=== PATIENT | male | born 1950 | race Hispanic/Latino ===

== ENCOUNTER 2019-01-14 18:27 | Inpatient (IN) | payer MEDICARE, OTHER ==
[~2019-01-14 18:27] MED LIST: Gadobenate Dimeglumine 529 MG/1 ML (20ML VIAL) ONE
[2019-01-14] MEDS ORDERED: Acetaminophen 325 MG TAB ONE (18:50)
[2019-01-14] MEDS ORDERED: Ibuprofen 800 MG TAB ONE (18:50)
[2019-01-14 20:30] LABS: #Basophils 0.1 thou/uL (0.0-0.2); #Eosinphils 0.1 thou/uL (0.0-0.7); #Lymphocytes 1.7 thou/uL (1.20-3.40); #Monocytes 1.2 thou/uL (0.11-0.59); #Neutrophils 8.6 thou/uL (1.40-6.50); %Eosinophils 0.7 % (0.0-10.0); %Lymphocytes 14.3 % (21.0-51.0); %Monocytes 10.2 % (0.0-10.0); %Neutrophils 73.8 % (42.0-75.0); Mean Corpuscular HGB CONC 33.3 g/dL (32.0-36.0); Mean Corpuscular Hemoglobin 26.5 pg (27.0-31.0); Mean Corpuscular Volume 79.6 fL (78.0-98.0); Mean Platelet Volume 6.5 fL (7.4-10.4); Platelet Count 311 thou/uL (130-400); Red Blood Cell (RBC) Count 4.52 mill/uL (4.70-6.10); White Blood Cell (WBC) Count 11.6 thou/uL (4.8-10.8)
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
[2019-01-14 20:48] LABS: ALT (SGPT) 21 U/L (8-55); AST (SGOT) 49 U/L (5-34); Albumin 3.8 g/dL (3.4-4.8); Alkaline Phosphatase 1121 U/L (40-110); Anion Gap 13 mmol/L (10-20); BUN (Urea Nitrogen) 24 mg/dL (8.4-25.7); Bilirubin, Total 0.4 mg/dL (0.2-1.2); Calc. Creatinine Clearance 0 mL/min (70-130); Carbon Dioxide 23 mmol/L (23-31); Chloride 99 mmol/L (98-107); Estimated GFR-MDRD 70; Globulin 3.5 g/dL (2.4-3.5); Glucose 114 mg/dL (80-115); Potassium 3.3 mmol/L (3.5-5.1); Protein, Total 7.3 g/dL (5.8-8.1); Sodium 132 mmol/L (136-145)
[2019-01-14 21:15] LABS: Bacteria/HPF None Seen HPF (None Seen); Bilirubin Negative (Negative); Blood, Urine 1+ (Negative); Clarity Clear (Clear); Glucose, Urine (Dipstick) Normal (Negative); Leukocyte Negative Leu/uL (Negative); Nitrite Negative (Negative); Protein, Urine (Dipstick) 30 mg/dL (Neg-Trace); Squamous Epithelial None Seen HPF (0-3); Urobilinogen 3 mg/dL (Less than 2); WBC/HPF 0-3 HPF (0-3)
[2019-01-15] MEDS ORDERED: Piperacillin/Tazobactam 4.5 GM VIAL ONE (01:46)
[2019-01-15] MEDS ORDERED: Sodium Chloride 0.9% 100 ML ONE (01:46)
[2019-01-15] MEDS ORDERED: HYDROcodone/Acetaminophen 5/325 mg Tablet PO PRN ×2 (03:02→16:29)
[2019-01-15] MEDS ORDERED: Ondansetron PF 4 MG/2 ML Vial IVP PRN ×2 (03:02→13:30)
[2019-01-15] MEDS ORDERED: Ondansetron ODT 4 MG TAB SL PRN (03:02)
[2019-01-15] MEDS ORDERED: Acetaminophen 325 MG TAB PO PRN (03:02)
[2019-01-15] MEDS: HYDROcodone/Acetaminophen 5/325 mg Tablet PO PRN ×2 (03:41→08:52)
--- NOTE | 2019-01-15 08:30 | MRI ---
PRELIMINARY REPORT/[facility]/EMERGENCY AFTER HOURS PROCEDURE: PROCEDURE INFORMATION: Exam: MR Lumbar Spine Without and With Contrast. Exam date and time: 01/14/2019 11:38 PM Clinical history: 68 years old, male; Other: Epidural abcess; Patient HX: M68 presents to ED with C/O back pain that radiates into bilateral legs with neck pain radiating into shoulders since November wit h acute worsening last night. PT reports that he has followed up with his pcp who did xrays that show ed arthritis. PT denies injury to back. PT reports pcp prescribed PT tramadol today and reports he wilkins s taken it once with no relief. PT with fever in triage. PT unsure what is causing this and reports n o recent illness. PT reports intermittent cough and lower abdominal pain x1 month. PT denies SOB, sor e throat, nvd and UTI symptoms TECHNIQUE: Imaging protocol: Multiplanar magnetic resonance images of the lumbar spine without and with intraven ous contrast. Contrast material: MULTIHANCE; Contrast volume: 20 ml; Contrast route: RT FOREARM; COMPARISON: No relevant prior studies available. FINDINGS: Vertebral body height and alignment is preserved. Disc desiccation. There is extensive abnormal marro w signal and enhancement. Conus medullaris terminates at L1. No epidural fluid collection. There is lumbosacral epidural lipomatosis. L1-L2: Mild disc bulge with superimposed shallow right paracentral protrusion and annular tear. No si gnificant central or foraminal stenosis. L2-L3: Mild disc bulge with posterior annular tear. No significant central or foraminal stenosis. L3-L4: Mild disc bulge and mild bilateral facet joint arthropathy. No significant central or foramina l stenosis. L4-L5: Disc bulge with superimposed shallow right central protrusion and annular tear. There is mild facet joint arthropathy and prominent epidural fat. Moderate central canal stenosis and mild bilatera l foraminal stenosis. L5-S1: Disc bulge eccentric toward the left side. There is prominent epidural fat which effaces CSF f rom the thecal sac. Mild to moderate bilateral foraminal stenosis. IMPRESSION: 1. Abnormal marrow signal concerning for osseous metastatic disease. 2. Lumbosacral epidural lipomatosis with superimposed degenerative findings as above. Thank you for allowing us to participate in the care of your patient. Dictated and Authenticated by: Bang Gipson MD 01/15/2019 1:30 AM Central Time ([place] & [place]) FINAL REPORT MRI LUMBAR SPINE WITH AND WITHOUT GADOLINIUM CONTRAST PERFORMED ON AN EMERGENCY BASIS: Date: 01/14/19 Time: 2342 hours HISTORY: Low back pain. Evaluate for cauda equina syndrome. FINDINGS: Findings agree with the preliminary report by [facility]. Multilevel degenerative changes as detailed in the preliminary report. Near diffuse abnormal signal t hroughout the bone marrow with contrast enhancement. Likely related to widespread metastatic disease. Likely a hemangioma within the S2 vertebral segment. POS: [facility]
--- NOTE | 2019-01-15 08:34 | MRI ---
PRELIMINARY REPORT/[facility]/EMERGENCY AFTER HOURS PROCEDURE: PROCEDURE INFORMATION: Exam: MR Thoracic Spine Without and With Contrast Exam date and time: 01/14/2019 11:19 PM Clinical history: 68 years old, male; Other: Epidural abcess; Patient HX: M68 presents to ED with C/O back pain that radiates into bilateral legs with neck pain radiating into shoulders since November wit h acute worsening last night. PT reports that he has followed up with his pcp who did xrays that show ed arthritis. PT denies injury to back. PT reports pcp prescribed PT tramadol today and reports he wilkins s taken it once with no relief. PT with fever in triage. PT unsure what is causing this and reports n o recent illness. PT reports intermittent cough and lower abdominal pain x1 month. PT denies SOB, sor e throat, nvd and UTI symptoms TECHNIQUE: Imaging protocol: Multiplanar magnetic resonance images of the thoracic spine without and with intrav enous contrast. Contrast material: MULTIHANCE; Contrast volume: 20 ml; Contrast route: RIGHT FOREARM; COMPARISON: No relevant prior studies available. FINDINGS: No acute compression fracture or malalignment. There is extensive pathologic marrow signal and enhanc ement. No abnormal cord signal. No epidural fluid collection. No significant central canal stenosis throughout. IMPRESSION: 1. Extensive pathologic marrow signal and enhancement concerning for osseous metastatic disease. 2. No abnormal cord signal. 3. No significant central canal compromise. Thank you for allowing us to participate in the care of your patient. Dictated and Authenticated by: Bang Gipson MD 01/15/2019 1:25 AM Central Time ([place] & [place]) FINAL REPORT MRI THORACIC SPINE WITH AND WITHOUT CONTRAST: Date: 01/14/19 Exam performed in the emergency department. Question epidural abscess. FINDINGS: Abnormal marrow signal is seen throughout the thoracic vertebra. Thoracic vertebral bodies maintain h eight and alignment. No evidence of disc protrusion or central canal stenosis. There is high T2 signal and enhancement seen involving several posterior ribs in the mid and lower th oracic spine. Posterior element involvement is seen at multiple levels. I am in agreement with the preliminary report issued by [facility]. POS: [facility]
--- NOTE | 2019-01-15 08:39 | MRI ---
PRELIMINARY REPORT/[facility]/EMERGENCY AFTER HOURS PROCEDURE: PROCEDURE INFORMATION: Exam: MR Cervical Spine Without and With Contrast Exam date and time: 01/14/2019 10:54 PM Clinical history: 68 years old, male; Other: Epidrual abcess; Patient HX: M68 presents to ED with C/O back pain that radiates into bilateral legs with neck pain radiating into shoulders since November wit h acute worsening last night. PT reports that he has followed up with his pcp who did xrays that show ed arthritis. PT denies injury to back. PT reports pcp prescribed PT tramadol today and reports he wilkins s taken it once with no relief. PT with fever in triage. PT unsure what is causing this and reports n o recent illness. PT reports intermittent cough and lower abdominal pain x1 month. PT denies SOB, sor e throat, nvd and UTI symptoms TECHNIQUE: Imaging protocol: Multiplanar magnetic resonance images of the cervical spine without and with intrav enous contrast. Contrast material: MULTIANCE; Contrast volume: 20 ml; Contrast route: RIGHT FOREARM; COMPARISON: No relevant prior studies available. FINDINGS: Nonspecific straightening of the cervical lordosis. Trace retrolisthesis of C3 on C4. Mild loss of lozano perior endplate height involving C7. No associated edema. Abnormal marrow signal and enhancement invo lving the cervical and thoracic spine. No abnormal cord signal. No epidural fluid collection. C2-C3: No significant central or foraminal stenosis. C3-C4: Mild disc osteophyte complex with left greater than right uncinate spurring. No significant ce ntral canal stenosis. There is mild to moderate left foraminal stenosis. C4-C5: Mild disc osteophyte complex with left greater than right uncinate spurring. No significant ce ntral canal stenosis. There is mild to moderate left foraminal stenosis. C5-C6: Mild disc osteophyte complex with uncinate spurring more prominent on the right. No significan t central canal stenosis. Moderate bilateral foraminal stenosis. C6-C7: Mild disc osteophyte complex with bilateral uncinate spurring. No significant central canal st enosis. There is moderate bilateral foraminal stenosis. C7-T1: No significant stenosis. IMPRESSION: 1. Abnormal marrow signal involving the cervical and visualized upper thoracic spine concerning for o sseous metastatic disease. 2. No abnormal cord signal. 3. Degenerative findings as above without significant central canal stenosis or cord compression. Thank you for allowing us to participate in the care of your patient. Dictated and Authenticated by: Bang Gipson MD 01/15/2019 1:21 AM Central Time ([place] & [place]) FINAL REPORT MRI CERVICAL SPINE WITH AND WITHOUT CONTRAST: Date: 01/14/19 INDICATION: Back pain. Exam performed in the emergency department. FINDINGS: Mild degenerative disc changes seen throughout the cervical spine. Mild posterior disc bulge and spon dylosis without significant cord compression or central canal stenosis. On postcontrast imaging, there is mottled enhancement seen involving cervical and upper thoracic vert ebra, as described on the preliminary report. Consider further evaluation with total body bone scan. I am in agreement with the preliminary report issued by [facility]. POS: [facility]
[2019-01-15] MEDS ORDERED: Ondansetron ODT 4 MG TAB PO PRN (13:30)
[2019-01-15] MEDS ORDERED: hydrALAZINE 20 MG/ML VIAL SLOW IVP PRN (13:30)
[2019-01-15 14:15] VITALS: BMI 32.3
[2019-01-15] MEDS: Amlodipine 5 MG TAB PO SCH (14:36)
[2019-01-15] MEDS: traMADol HCl 50 MG TAB PO SCH ×2 (14:36→20:35)
--- NOTE | 2019-01-15 14:59 | HP ---
PRIMARY CARE PROVIDER: Dr. Toni Mai in [place], [place]. CHIEF COMPLAINT: Back pain. HISTORY OF PRESENT ILLNESS: This is a 68-year-old male, who presented to [facility] Emergency Department complaining of lower back pain radiating to bilateral lower extremities with associated right shoulder discomfort, which began approximately 2 months prior to this evaluation. The patient noted increasing pain in the right shoulder region over the last 24 hours and apparently underwent plain radiographic imaging of his back and shoulder by his primary care provider, who commented that he had arthritis. The patient denied any direct trauma or injury or documented fever, chills, or exposure history. The patient was prescribed tramadol, which he took without specific relief. The patient does admit to persistent pain in the right shoulder area with movement or lying on the shoulder and notes a 30 plus pound weight loss over the last eight weeks. The patient states this was unintentional with some decrease in overall appetite. The patient denied any change to bowel habits, recent travel history or exposure, or family members with similar symptoms. The patient denied any documented fever, but states he was noted febrile up to 102 degrees Fahrenheit at presentation in the emergency room. The patient states his only new medication was tramadol prescribed for his back pain. 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 In the emergency room, the patient underwent general evaluation including MRI imaging of his cervical, thoracic, and lumbar spine showing degenerative changes throughout the spinal column. The patient was also noted with changes consistent with metastatic process concerning for malignancy. The patient received IV vancomycin, Zosyn, Motrin, and Tylenol in the emergency room and was referred to the Hospitalist Service for further evaluation. PAST MEDICAL HISTORY: 1. Hypertension. 2. Chronic back pain. 3. Question of diabetes mellitus, previously treated while on oral medication, now discontinued. 4. Remote tobacco use, quitting in the . PAST SURGICAL HISTORY: Status post eye surgery. CURRENT MEDICATIONS: 1. Amlodipine 2.5 mg p.o. q.48 hours. 2. Carvedilol 6.25 mg p.o. b.i.d. 3. Hydrochlorothiazide 12.5 mg p.o. daily. 4. Latanoprost one drop to each eye at bedtime. 5. Meloxicam 15 mg p.o. daily. 6. Potassium chloride 10 mEq p.o. daily. 7. Tramadol 50 mg p.o. t.i.d. p.r.n. pain. 8. Calan SR 240 mg 2 tablets p.o. daily. ALLERGIES: NO KNOWN DRUG ALLERGIES. FAMILY HISTORY: Positive for dementia in his parents. SOCIAL HISTORY: The patient is , accompanied by his and daughter in the hospital. 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 Former tobacco use, quitting in the . Occasional alcohol use. No illicit drug use. Functional of all activities of daily living. REVIEW OF SYSTEMS: CONSTITUTIONAL: Negative for weight loss or gain, ability to conduct usual activities. SKIN: Negative for rash, itching. EYES: Negative for double vision, pain. ENT/MOUTH: Negative for nose bleeding, neck stiffness, pain, tenderness. CARDIOVASCULAR: Negative for palpitations, dyspnea on exertion, orthopnea. RESPIRATORY: Negative for shortness of breath, wheezing, cough, hemoptysis, fever or night sweats. GASTROINTESTINAL: Negative for poor appetite, abdominal pain, heartburn, nausea, vomiting, constipation, or diarrhea. GENITOURINARY: Negative for urgency, frequency, dysuria, nocturia. MUSCULOSKELETAL: Negative for pain, swelling. NEUROLOGIC/PSYCHIATRIC: Negative for anxiety, depression. ALLERGY/IMMUNOLOGIC: Negative for skin rash, bleeding tendency. Otherwise negative except as stated per HPI. PHYSICAL EXAMINATION: VITAL SIGNS: On admission, blood pressure 133/75, pulse 76, respiratory rate 18, temperature 99 degrees Fahrenheit, and O2 saturation 94% on room air. GENERAL APPEARANCE: This is a 68-year-old male, alert and oriented x3, pleasant, responsive, in no acute distress. HEENT: Pupils are equal, round, and reactive to light and accommodation. Extraocular muscles are intact. No scleral icterus. No conjunctival injection. Nares patent. OP is clear. Teeth in fair repair. NECK: Supple. No cervical adenopathy. No thyromegaly. No carotid bruits. No JVD appreciated. Cervical spine with full active and passive range of motion. No meningeal signs noted. CHEST: Lungs are clear to auscultation bilaterally. CARDIOVASCULAR: S1 and S2 without noted murmur, rub, or gallop. ABDOMEN: Obese, nontender, and nondistended. Bowel sounds are positive in all 4 quadrants. There is no hepatosplenomegaly. No abdominal bruits. No rebound or guarding appreciated. EXTREMITIES: Warm and dry with fair turgor. No clubbing, cyanosis, or asymmetric edema appreciated. Pulses palpable distally at the dorsalis pedis, posterior tibial, and popliteal arteries bilaterally. Capillary refill less than 2 seconds. NEUROLOGIC: Cranial nerves 2 through 12 are grossly intact. No focal or lateralizing signs appreciated. PERTINENT LABORATORY AND X-RAY FINDINGS: Sodium 132, potassium 3.3, chloride 99, CO2 of 23, BUN 24, creatinine 1.05, estimated GFR of 70, glucose 114, calcium 9.0, AST 49, ALT of 21, alkaline phosphatase 1121, albumin 3.8. CBC showed a white blood cell count of 11.6, hemoglobin 12, hematocrit 36, platelet count 311 with 74% neutrophils. ESR 60. Urinalysis positive for protein, 4 to 6 rbc's per high-power field. Blood cultures x2 dated 01/14/2019, showed no growth to date. Influenza A and B antigen dated 01/14/2019, negative. Portable chest x-ray dated 01/14/2019, showed no acute cardiopulmonary process. MRI of the cervical, thoracic, and lumbar spine showed diffuse osseous metastatic process of unknown etiology. Degenerative changes noted throughout the spinal column. ASSESSMENT AND PLAN: 1. Osseous metastatic process. The patient will be admitted to the medical floor. Exact etiology is unclear currently. We will continue to evaluate for potential primary. Check CT of the chest, abdomen, and pelvis in addition to assessment of tumor markers to include CA-125, CA-19-9, AFP, TSH, PSA, and fecal occult stool study. We will consult Medical Oncology Service for further recommendations and evaluation. 2. Weight loss. Suspect secondary to #1. See #1 above for evaluation. The patient may need additional evaluation to include a tissue biopsy. 3. Hyponatremia. Suspect iatrogenic secondary to hydrochlorothiazide. We will continue supportive management and serial monitoring. 4. Hypokalemia. Continue potassium chloride supplementation and repeat potassium level in the a.m. 5. Hypertension. Resume home blood pressure regimen and monitor clinical response. 6. Prophylaxis. SCDs while in bed. Pepcid 20 mg p.o. b.i.d. 7. Code status is full. Surrogate medical decision maker is the patient's spouse. Job ID: [id number]
--- NOTE | 2019-01-15 16:45 | CT ---
CT CHEST, ABDOMEN AND PELVIS WITH IV CONTRAST: 01/15/19 INDICATION: MRI of spine indicated evidence of osseous metastatic disease. CT CHEST: The lungs appear clear of infiltrate. No evidence of effusion. There is mild pleural thickening poste riorly. There is scattered calcified granuloma in both lung pedroza. A larger granuloma in the right u pper lobe measures up to 1.2 cm. There are a few scattered peripheral noncalcified nodules which sergio ure in the 2 to 3 mm range. Mediastinum is unremarkable. No axillary adenopathy. Review of the osseous structures shows mottled density in the thoracic vertebra consistent with the M RI findings. Degenerative changes are seen. There is mottled density involving the posterior left sixth rib at the costovertebral junction worris ome for metastatic involvement. There is a long segment of abnormal mottled density involving the anterolateral right third rib consi stent with metastatic involvement. IMPRESSION: 1. Mottled osseous findings consistent with metastatic involvement. Recommend bone scan to asses s skeletal system. 2. Scattered granuloma are seen in both lungs. No acute lung process. CT ABDOMEN AND PELVIS: Liver, spleen and pancreas unremarkable. Adrenal glands and kidneys unremarkable. Small bowel loops n ormal caliber. Colon unremarkable. There are scattered diverticula. Colonic mucosal lesions are not e xcluded by CT. Aorta is calcified without aneurysmal dilatation. No evidence of adenopathy. Prostate mildly prominen t. The lumbar vertebrae maintain height and alignment. There is mottled sclerotic opacity which correspo nds to the MRI findings. IMPRESSION: 1. No acute intra-abdominal process. 2. Mottled density of the lumbar vertebrae corresponding to the MRI findings. Recommend whole mo dy bone scan to assess the skeletal system. 3. Mild prostatic hypertrophy. POS: [facility]
[2019-01-15] MEDS: Senokot S 8.6-50 MG TAB PO SCH (16:58)
[2019-01-15] MEDS: Famotidine 20 MG TAB PO SCH (20:34)
[2019-01-15] MEDS: Carvedilol 6.25 MG TAB PO SCH (20:34)
[2019-01-15] MEDS: Latanoprost 0.005% Ophth Soln 2.5 ml Bottle EA EYE SCH (20:37)
--- NOTE | 2019-01-15 21:40 | CON ---
DATE OF CONSULTATION: REASON FOR CONSULT: Possible bony metastatic process on MRI. HISTORY OF PRESENT ILLNESS: Mr. Laguna is a 68-year-old gentleman, who presented to the emergency room with low back pain and right shoulder pain. He has been having this pain for approximately 2 months. He has been seen by his primary care physician, who took x-rays of his back and shoulder and said he had arthritis. The patient denies that he has told any abnormal bone lesions noted. He has been taking tramadol with no relief. He has lost 30 pounds, but he states he has not been eating secondary to pain. In the emergency room, he had an MRI of his cervical, thoracic, and lumbar spine. There was some abnormal marrow signaling and enhancement throughout the spine, which was felt to be widespread metastatic disease. The patient was admitted for further workup. His WBCs in the emergency room were slightly elevated at 11.6. His hemoglobin was 12, and his platelet count was normal at 311. He did have hyponatremia with a sodium of 132. His AST was elevated at 49, alkaline phosphatase was 1121. We were asked to see the patient for assistance with diagnosis. The patient denies any shortness of breath, cough, or hemoptysis. No chest pain. He has had no abdominal discomfort. No melena, or hematochezia. His last colonoscopy was 3 years ago and was normal. He has routine prostate exams. PAST MEDICAL HISTORY: 1. Hypertension. 2. Back pain. PAST SURGICAL HISTORY: Eye surgery. ALLERGIES: NO KNOWN DRUG ALLERGIES. HOME MEDICATIONS: 1. Amlodipine. 2. Coreg. 3. Hydrochlorothiazide. 4. Eye drops. 5. Meloxicam. 6. Potassium chloride. 7. Tramadol. 8. Calan SR. FAMILY HISTORY: No cancer in his family. SOCIAL HISTORY: He is , lives with his . He has a history of smoking, quit in 1979. No alcohol use. REVIEW OF SYSTEMS: A 10-point review of systems is negative except for noted in HPI. PHYSICAL EXAMINATION: VITAL SIGNS: Temperature is 99, pulse is 76, respiratory rate 18, BP is 133/75. He is 94% on room air. GENERAL: This is a well-developed, well-nourished male, in no acute distress. HEENT: Normocephalic, atraumatic. Pupils are equal and reactive to light. NECK: Supple. CV: Regular rate and rhythm. LUNGS: Clear. ABDOMEN: Soft. He is obese. Bowel sounds are positive. EXTREMITIES: No clubbing, cyanosis, or edema. SKIN: No rash. HEMATOLOGICAL: No petechiae or purpura. NEUROLOGICAL: Nonfocal. PERTINENT LABORATORY DATA AND X-RAYS: Current WBCs 11.6, hemoglobin 12, hematocrit 36, platelet count 311,000. He has 74% neutrophils, 14% lymphocytes. Sedimentation rate is 60. Sodium 132, potassium 3.3, chloride 99, CO2 is 23, BUN is 24, creatinine 1.05, calcium 9, bilirubin 0.4, AST is 49, ALT is 21, alkaline phosphatase is 1121. Serum total protein is 7.3, albumin 3.8, globulin 3.5. AFP is less than 2. CA-125 is 16 and PSA is 0.83. Urine is negative for bacteria. ASSESSMENT: Chronic back and right shoulder pain with abnormal MRI findings. DISCUSSION: The patient is known to have a CT scan of his chest, abdomen, and pelvis. He is undergoing lab test and serum tumor markers. I will add an SPEP to rule out myeloma. Further recommendations will be based on results. Thank you for the consult. Job ID: [id number]
[2019-01-16 05:23] LABS: ALT (SGPT) 18 U/L (8-55); AST (SGOT) 23 U/L (5-34); Albumin 3.5 g/dL (3.4-4.8); Alkaline Phosphatase 807 U/L (40-110); Anion Gap 13 mmol/L (10-20); BUN (Urea Nitrogen) 12 mg/dL (8.4-25.7); Bilirubin, Total 0.5 mg/dL (0.2-1.2); Calc. Creatinine Clearance 137 mL/min (70-130); Calcium 8.8 mg/dL (7.8-10.44); Carbon Dioxide 25 mmol/L (23-31); Chloride 96 mmol/L (98-107); Estimated GFR-MDRD Greater than 90; Globulin 3.5 g/dL (2.4-3.5); Glucose 112 mg/dL (80-115); Sodium 131 mmol/L (136-145)
[2019-01-16 05:24] LABS: Band 4 % (5-11); Eosinophils 1 % (0-10); Hemoglobin 11.4 g/dL (14.0-18.0); Lymphocytes 20 % (21-51); MDiff Complete? YES; Mean Corpuscular HGB CONC 33.3 g/dL (32.0-36.0); Mean Corpuscular Hemoglobin 26.6 pg (27.0-31.0); Mean Corpuscular Volume 79.8 fL (78.0-98.0); Mean Platelet Volume 6.6 fL (7.4-10.4); Monocytes 9 % (0-10); Neutrophil 66 % (42-75); Platelet Count 290 thou/uL (130-400); RBC Distribution Width 12.9 % (11.5-14.5); Red Blood Cell (RBC) Count 4.28 mill/uL (4.70-6.10); White Blood Cell (WBC) Count 10.9 thou/uL (4.8-10.8)
[2019-01-16] MEDS ORDERED: Potassium Chloride 10 MEQ TAB PO SCH (09:00)
[2019-01-16] MEDS ORDERED: Non-Formulary Item 1 EACH (Hydrochlorothiazide [Hydrochlorothiazide] 1 TAB) PO SCH (09:00)
[2019-01-16] MEDS ORDERED: Hydrochlorothiazide 25 MG TAB PO SCH (09:00)
[2019-01-16] MEDS: Carvedilol 6.25 MG TAB PO SCH ×2 (09:06→20:16)
[2019-01-16] MEDS: Senokot S 8.6-50 MG TAB PO SCH ×2 (09:08→20:16)
[2019-01-16] MEDS: traMADol HCl 50 MG TAB PO SCH ×3 (09:08→20:20)
[2019-01-16] MEDS: Acetaminophen 500 MG TAB PO PRN (09:50)
[2019-01-16] MEDS: Meloxicam 15 MG TAB PO SCH (09:51)
[2019-01-16] MEDS: Famotidine 20 MG TAB PO SCH ×2 (09:51→20:16)
[2019-01-16] MEDS ORDERED: FLU VACC TS2019-20(65YR UP)/PF 180 MCG/0.5 ML SYRINGE IM ONE (10:15)
--- NOTE | 2019-01-16 14:24 | PDOC.HOSPP ---
- Subjective Encounter Date: 01/16/19 Encounter Time: 14:20 Subjective: f/u for osseous metastatic process. Feels ok overall with pain meds helping his sx. No BM in last 3 days. - Objective Vital Signs & Weight: Vital Signs (12 hours) Temp Pulse Resp BP BP Pulse Ox 01/16/19 11:52 98.6 F 51 L 18 91/57 L 92 L 01/16/19 09:06 155/68 H 01/16/19 07:52 98.6 F 79 17 155/68 H 93 L 01/16/19 04:00 99.4 F 80 18 158/75 H 92 L Weight Admit Weight 232 lb Weight 232 lb Result Diagrams: 01/16/19 04:43 01/16/19 04:43 Additional Labs: Microbiology 01/14/19 22:13 Venous blood - Left Hand Blood Culture - Preliminary NO GROWTH AT 48 HOURS 01/14/19 22:06 Venous blood - Right Arm Blood Culture - Preliminary NO GROWTH AT 48 HOURS Laboratory Tests 01/15/19 01/15/19 01/15/19 13:26 13:26 13:26 Tumor Marker AFP Less than 2.0 CA 19-9 Antigen 36 H CA 125 (WILLIAM) 16.2 TSH 3rd Generation 01/16/19 04:43 Tumor Marker AFP CA 19-9 Antigen CA 125 (WILLIAM) [facility] 3rd Generation [id number] Radiology Reviewed by me: Yes (CT chest/abd/pel - no acute chest/intra-abd process, diffuse osseous mets) Hospitalist ROS - Medication Medications: Active Medications Generic Name Dose Route Start Last Admin Trade Name Freq PRN Reason Stop Dose Admin Acetaminophen 1,000 mg 01/15/19 13:30 01/16/19 09:50 Tylenol PO 1,000 mg Q6H PRN Administration Mild Pain (1-3) Hydrocodone Bitart/Acetaminophen 2 tab 01/15/19 16:29 01/15/19 16:55 Platinum 5/325 PO 2 tab Q6H PRN Administration Severe Pain (7-10) Amlodipine Besylate 2.5 mg 01/15/19 13:30 01/15/19 14:36 Norvasc PO 2.5 mg Q2DAYS ABRAHAM Administration Carvedilol 6.25 mg 01/15/19 21:00 01/16/19 09:06 Coreg PO 6.25 mg BID ABRAHAM Administration Famotidine 20 mg 01/15/19 21:00 01/16/19 09:51 Pepcid PO 20 mg BID ABRAHAM Administration Hydrochlorothiazide 12.5 mg 01/16/19 09:00 01/16/19 09:05 Hydrochlorothiazide PO 12.5 mg DAILY ABRAHAM Administration Latanoprost 1 drop 01/15/19 21:00 01/15/19 20:37 Xalatan 0.005% Ophth Soln EA EYE 1 drp HS ABRAHAM Administration Meloxicam 15 mg 01/16/19 09:00 01/16/19 09:51 Mobic PO Not Given DAILY ABRAHAM Senna/Docusate Sodium 1 tab 01/15/19 21:00 01/16/19 09:08 Senokot S PO 1 tab BID ABRAHAM Administration Sodium Chloride 10 ml 01/15/19 21:00 01/16/19 09:09 Flush - Normal Saline IVF 10 ml Q12HR ABRAHAM Administration Tramadol HCl 50 mg 01/15/19 15:00 01/16/19 09:08 Ultram PO Not Given TID ABRAHAM Verapamil HCl 480 mg 01/16/19 09:00 01/16/19 09:50 Calan Sr PO 480 mg DAILY ABRAHAM Administration - Exam General Appearance: NAD, awake alert Eye: PERRL, anicteric sclera ENT: normocephalic atraumatic, no oropharyngeal lesions Neck: supple, symmetric, no JVD, no thyromegaly, no lymphadenopathy Heart: RRR, no murmur, no gallops, no rubs, normal peripheral pulses Respiratory: CTAB, no wheezes, no rales, no ronchi, normal chest expansion Gastrointestinal: soft, non-tender, non-distended, normal bowel sounds, no palpable masses Extremities: no cyanosis, no clubbing, no edema Skin: normal turgor, no lesions Neurological: cranial nerve grossly intact, no new deficit Musculoskeletal: normal tone, normal strength Psychiatric: normal affect, A&O x 3 Hosp A/P (1) Osseous metastasis Code(s): C79.51 - SECONDARY MALIGNANT NEOPLASM OF BONE Status: Acute Plan: Etiology unclear but suspicious for malignant process, consult IR for bone marrow bx (2) HTN (hypertension) Code(s): I10 - ESSENTIAL (PRIMARY) HYPERTENSION Status: Chronic Qualifiers: Hypertension type: essential hypertension Qualified Code(s): I10 - Essential (primary) hypertension Plan: Resume home BP regimen, monitor serial BP (3) Back pain Code(s): M54.9 - DORSALGIA, UNSPECIFIED Status: Acute Qualifiers: Back pain location: low back pain Back pain laterality: bilateral Plan: Secondary to #1, Platinum/Tylenol prn (4) Hypokalemia Code(s): E87.6 - HYPOKALEMIA Status: Acute Plan: KCL 20meq daily, serial K+ monitoring (5) Hyponatremia Code(s): E87.1 - HYPO-OSMOLALITY AND HYPONATREMIA Status: Acute Plan: Likely chronic, serial Na+ monitoring (6) Normocytic anemia Code(s): D64.9 - ANEMIA, UNSPECIFIED Status: Acute Plan: Stool hemoccult pending - Plan plan discussed w/ family, out of bed/ambulate Stable currently Consult IR for bone marrow bx Mag citrate for constipation Increase KCL 20meq daily D/C Hydralazine AM lab: BMP
[2019-01-16] MEDS ORDERED: Magnesium Citrate 300 ML BOT PO SCH (14:30)
[2019-01-16] MEDS: Latanoprost 0.005% Ophth Soln 2.5 ml Bottle EA EYE SCH (20:17)
[2019-01-17] MEDS: Acetaminophen 500 MG TAB PO PRN (07:06)
[2019-01-17] MEDS: Carvedilol 6.25 MG TAB PO SCH ×2 (07:06→20:09)
[2019-01-17] MEDS: Famotidine 20 MG TAB PO SCH ×2 (09:07→20:09)
[2019-01-17] MEDS: Potassium Chloride 20 MEQ TAB PO SCH (09:07)
[2019-01-17] MEDS: Senokot S 8.6-50 MG TAB PO SCH ×2 (09:08→20:09)
[2019-01-17] MEDS: traMADol HCl 50 MG TAB PO SCH ×3 (09:09→20:10)
[2019-01-17] MEDS: Meloxicam 15 MG TAB PO SCH (09:09)
[2019-01-17] MEDS: Amlodipine 5 MG TAB PO SCH (13:46)
--- NOTE | 2019-01-17 14:06 | NM ---
WHOLE BODY BONE SCAN: HISTORY: Diffuse osseous metastatic disease seen on CT RADIOPHARMACEUTICAL: 31.3 mCi technetium-99m MDP injected intravenously. COMPARISON: CT chest, abdomen, pelvis 01/15/2019 FINDINGS: Diffuse abnormal increased uptake of the radiopharmaceutical is seen throughout the majority the [place]el [place] consistent with diffuse osseous metastatic disease. This is seen in the sternum, ribs, shoulders, bones of the pelvis, spine, and proximal femurs. Tracer excretion through the kidneys is within normal limits. IMPRESSION: Diffuse osseous metastatic disease
--- NOTE | 2019-01-17 16:17 | PDOC.HOSPP ---
- Subjective Encounter Date: 01/17/19 Encounter Time: 16:00 Subjective: f/u for diffuse osseous changes likely metastatic process but no tissue bx to date. Feels ok and completed bone scan confirming the process. - Objective Vital Signs & Weight: Vital Signs (12 hours) Temp Pulse Resp BP BP Pulse Ox 01/17/19 13:46 52 L 01/17/19 11:00 98.2 F 52 L 18 100/62 93 L 01/17/19 07:48 98.5 F 65 18 127/69 92 L Weight Admit Weight 232 lb Weight 232 lb Result Diagrams: 01/16/19 04:43 01/16/19 04:43 Additional Labs: Microbiology 01/14/19 22:13 Venous blood - Left Hand Blood Culture - Preliminary NO GROWTH AT 48 HOURS 01/14/19 22:06 Venous blood - Right Arm Blood Culture - Preliminary NO GROWTH AT 48 HOURS Laboratory Tests 01/15/19 01/15/19 01/15/19 13:26 13:26 13:26 Tumor Marker AFP Less than 2.0 CA 19-9 Antigen 36 H CA 125 (WILLIAM) 16.2 TSH 3rd Generation 01/16/19 04:43 Tumor Marker AFP CA 19-9 Antigen CA 125 (WILLIAM) TSH 3rd Generation [id number] Radiology Reviewed by me: Yes (Bone scan - diffuse osseous metastatic process) Hospitalist ROS - Medication Medications: Active Medications Generic Name Dose Route Start Last Admin Trade Name Freq PRN Reason Stop Dose Admin Acetaminophen 1,000 mg 01/15/19 13:30 01/17/19 07:06 Tylenol PO 1,000 mg Q6H PRN Administration Mild Pain (1-3) Hydrocodone Bitart/Acetaminophen 2 tab 01/15/19 16:29 01/15/19 16:55 [facility] 5/325 PO 2 tab Q6H PRN Administration Severe Pain (7-10) Amlodipine Besylate 2.5 mg 01/15/19 13:30 01/17/19 13:46 Norvasc PO Not Given Q2DAYS ABRAHAM Carvedilol 6.25 mg 01/15/19 21:00 01/17/19 07:06 Coreg PO 6.25 mg BID ABRAHAM Administration Famotidine 20 mg 01/15/19 21:00 01/17/19 09:07 Pepcid PO 20 mg BID ABRAHAM Administration Latanoprost 1 drop 01/15/19 21:00 01/16/19 20:17 Xalatan 0.005% Ophth Soln EA EYE 1 drp HS ABRAHAM Administration Meloxicam 15 mg 01/16/19 09:00 01/17/19 09:09 Mobic PO Not Given DAILY ABRAHAM Potassium Chloride 20 meq 01/17/19 09:00 01/17/19 09:07 K-Dur PO 20 meq DAILY ABRAHAM Administration Senna/Docusate Sodium 1 tab 01/15/19 21:00 01/17/19 09:08 Senokot S PO 1 tab BID ABRAHAM Administration Sodium Chloride 10 ml 01/15/19 21:00 01/17/19 09:09 Flush - Normal Saline IVF 10 ml Q12HR ABRAHAM Administration Tramadol HCl 50 mg 01/15/19 15:00 01/17/19 09:09 Ultram PO Not Given TID ABRAHAM Verapamil HCl 480 mg 01/16/19 09:00 01/17/19 09:06 Calan Sr PO 480 mg DAILY ABRAHAM Administration - Exam General Appearance: NAD, awake alert Eye: PERRL, anicteric sclera ENT: normocephalic atraumatic, no oropharyngeal lesions Neck: supple, symmetric, no JVD, no thyromegaly, no lymphadenopathy Heart: RRR, no murmur, no gallops, no rubs, normal peripheral pulses Respiratory: CTAB, no wheezes, no rales, no ronchi, normal chest expansion Gastrointestinal: soft, non-tender, non-distended, normal bowel sounds Gastrointestinal - other findings: obese Extremities: no cyanosis, no clubbing, no edema Skin: normal turgor, no lesions Neurological: cranial nerve grossly intact, no focal deficits, no new deficit Musculoskeletal: normal tone, normal strength Psychiatric: normal affect, A&O x 3 Hosp A/P (1) Osseous metastasis Code(s): C79.51 - SECONDARY MALIGNANT NEOPLASM OF BONE Status: Acute Plan: Suspected given findings on bone scan, bone marrow pending 01/18/19 (2) HTN (hypertension) Code(s): I10 - ESSENTIAL (PRIMARY) HYPERTENSION Status: Chronic Qualifiers: Hypertension type: essential hypertension Qualified Code(s): I10 - Essential (primary) hypertension Plan: Continue home BP regimen (3) Back pain Code(s): M54.9 - DORSALGIA, UNSPECIFIED Status: Acute Qualifiers: Back pain location: low back pain Back pain laterality: bilateral Plan: Secondary to #1, [facility] prn (4) Hypokalemia Code(s): E87.6 - HYPOKALEMIA Status: Acute (5) Hyponatremia Code(s): E87.1 - HYPO-OSMOLALITY AND HYPONATREMIA Status: Acute Plan: Likely due to HCTZ (6) Normocytic anemia Code(s): D64.9 - ANEMIA, UNSPECIFIED Status: Acute - Plan PT/OT, social security assessor, DVT proph w/SCDs Stable currently Consult IR for bone marrow bx Mag citrate for constipation Increase KCL 20meq daily Consider titrating Hydralazine AM lab: CMP Likely home 01/18/19 after bone marrow bx
[2019-01-17 19:09] LABS: A/G Ratio 0.8 (0.7-1.7); Alpha 1 0.5 g/dL (0.0-0.4); Alpha 2 1.2 g/dL (0.4-1.0); Beta 1.2 g/dL (0.7-1.3); M-Spike Not Observed g/dL (Not Observed)
[2019-01-17] MEDS: Latanoprost 0.005% Ophth Soln 2.5 ml Bottle EA EYE SCH (20:11)
[2019-01-18 05:32] LABS: ALT (SGPT) 19 U/L (8-55); AST (SGOT) 26 U/L (5-34); Albumin 3.5 g/dL (3.4-4.8); Alkaline Phosphatase 678 U/L (40-110); Anion Gap 16 mmol/L (10-20); BUN (Urea Nitrogen) 19 mg/dL (8.4-25.7); Bilirubin, Total 0.3 mg/dL (0.2-1.2); Calc. Creatinine Clearance 128 mL/min (70-130); Calcium 9.1 mg/dL (7.8-10.44); Carbon Dioxide 27 mmol/L (23-31); Chloride 98 mmol/L (98-107); Estimated GFR-MDRD Greater than 90; Globulin 3.7 g/dL (2.4-3.5); Glucose 100 mg/dL (80-115); Potassium 3.6 mmol/L (3.5-5.1); Protein, Total 7.2 g/dL (5.8-8.1); Sodium 137 mmol/L (136-145)
[2019-01-18] MEDS ORDERED: Midazolam HCl 2 mg/2 ml Vial ONE (08:13)
[2019-01-18] MEDS ORDERED: Fentanyl 100 MCG/2 ML VIAL ONE (08:13)
[2019-01-18] MEDS: HYDROcodone/Acetaminophen 5/325 mg Tablet PO PRN ×2 (08:50→16:21)
[2019-01-18] MEDS: Potassium Chloride 20 MEQ TAB PO SCH (08:51)
[2019-01-18] MEDS: Carvedilol 6.25 MG TAB PO SCH (08:52)
[2019-01-18] MEDS: Senokot S 8.6-50 MG TAB PO SCH (08:52)
[2019-01-18] MEDS: Famotidine 20 MG TAB PO SCH (08:53)
[2019-01-18] MEDS: Meloxicam 15 MG TAB PO SCH (08:55)
[2019-01-18] MEDS: traMADol HCl 50 MG TAB PO SCH ×2 (08:56→16:23)
--- NOTE | 2019-01-18 15:03 | CT ---
CT GUIDED RIGHT ILIAC BONE MARROW ASPIRATION AND BIOPSY OF A LESION IN THE POSTERIOR RIGHT ILIAC BONE : CLINICAL HISTORY: Prior imaging studies suggesting osseous metastatic disease with a lesion seen wit hin the right iliac bone mineral visualized on prior MRI but partially visualized on CT exam... PROCEDURE: The procedure including the risks and complications were explained to the patient, and informed conse nt was obtained. The patient was placed on the CT scan table in the prone position. Noncontrasted CT images were obtained through the pelvis. An area was marked overlying the RIGHT ej c bone, and the area was meticulously prepped and draped in usual sterile fashion. The skin and subcutaneous tissues were infiltrated with buffered 1% lidocaine for local anesthesia. After a small skin incision was made, an 10-gauge needle was advanced and positioning was confirmed w ith axial CT images. Approximately 4 milliliters of bone marrow aspirate was obtained. Utilizing coaxial technique, a 12-gauge bone biopsy needle was advanced, and an approximately 2 cm core bone bi opsy was performed. The specimen was evaluated by the pathologist. An additional core bone biopsy was attempted, but no additional material was able to be obtained. The needle was removed, and hemost asis was achieved with direct pressure. The patient tolerated the procedure well and without immediate complication. The patient was transported to his hospital room in stable condition. IMPRESSION: Technically successful percutaneous bone marrow aspiration and biopsy. Pathologist was available for evaluation of the specimens and noted cellular material on the provided obtained specimens. Final pathology result is pending.
[2019-01-18 16:19] VITALS: BP 135/75; TEMP 98.8
--- NOTE | 2019-01-18 16:44 | DIS ---
DATE OF ADMISSION: 01/15/2019 DATE OF DISCHARGE: 01/18/2019 PRIMARY CARE PHYSICIAN: Dr. Toni Mai. DISCHARGE DIAGNOSES: 1. Metastatic disease of unclear primary. 2. Osseous metastasis. 3. Hyponatremia. 4. Hypokalemia. 5. Hypertension. 6. Severe low back pain. 7. Right shoulder pain. 8. Normocytic anemia. CONSULTATIONS: Hematology and Oncology. PROCEDURES PERFORMED: Bone biopsy. HOSPITAL COURSE: A 68-year-old male patient with known history of hypertension, who presents with severe back pain radiating to the lower extremities as well as right shoulder pain. The patient also reported 30-pound weight loss in the last one month. Further evaluation with imaging, MRI showed metastatic bone disease. Hematology/Oncology consult was requested, but CT scan of the abdomen, chest and pelvis was unremarkable. The patient subsequently had bone biopsy and result is pending. With analgesic, pain control was adequate and the patient remained clinically improved. He remained stable and was subsequently discharged to follow with Hematology and Oncology for further discussion about the results of bone biopsy and further treatment. PHYSICAL EXAMINATION: VITAL SIGNS: Temperature 98.8, pulse 61, respiratory rate 18, SpO2 of 94% on room air, blood pressure is 135/75. GENERAL: Obese male, in no obvious distress. Afebrile. Anicteric. Acyanotic. HEENT: Normocephalic, atraumatic. Oral mucosa is moist. CARDIOVASCULAR: Regular rhythm and rate with normal heart sounds 1 and 2. RESPIRATORY: Good air entry bilaterally with no obvious crackle or rhonchi, or use of accessory muscles. GASTROINTESTINAL: Obese, soft, nontender, and nondistended with normal bowel sounds. EXTREMITIES: Grossly normal looking and atraumatic with no edema or erythema. CENTRAL NERVOUS SYSTEM: Conscious, alert and oriented x3 with appropriate mental status. Cranial nerves 2 through 12 are grossly intact. The patient moves all extremities. The patient is ambulant. DISCHARGE DISPOSITION: Home. DISCHARGE CONDITION: Improved. DISCHARGE MEDICATIONS: 1. Carvedilol 6.25 mg p.o. b.i.d. 2. Latanoprost eyedrops at bedtime. 3. Verapamil 480 mg p.o. daily. 4. Tylenol 3 q.6 hours p.r.n. 5. Acetaminophen 1000 mg q.6 hours p.r.n. 6. Losartan 25 mg p.o. daily. 7. Sennoside-docusate one tablet p.o. b.i.d. FOLLOWUP: 1. With Hematology/Oncology in 1 week. 2. With PCP in 1 week. TIME SPENT: Discharge took more than 34 minutes. Job ID: [id number]
== END 2019-01-18 18:11 | disposition home or self-care (01) | DRG 478 ==
LOC: ERS 18:27 → T4-B 01-15 02:08
PROVIDERS: ADMIT Internal Medicine; ATTEND Internal Medicine
PROC: 07DR3ZX Extraction of Iliac Bone Marrow, Percutaneous Approach, Diagnostic (ICD-10-PCS; principal; 2019-01-18)
PROC: 0QB23ZX Excision of Right Pelvic Bone, Percutaneous Approach, Diagnostic (ICD-10-PCS; 2019-01-18)
DX: C79.51 Secondary malignant neoplasm of bone (principal); E87.1 Hypo-osmolality and hyponatremia; M54.9 Dorsalgia, unspecified; C80.1 Malignant (primary) neoplasm, unspecified; E87.6 Hypokalemia; M25.511 Pain in right shoulder; R63.4 Abnormal weight loss; I10 Essential (primary) hypertension; K59.00 Constipation, unspecified; D64.9 Anemia, unspecified; Z68.32 Body mass index [BMI] 32.0-32.9, adult
CPT/HCPCS: 20225; 36415; 71045; 71260; 72156; 72157; 72158; 74177; 77012; 78306; 80053; 81003; 81015; 82105; 84165; 84443; 85007; 85025; 85027; 85652; 86301; 86304; 87040; 87804; 88305; 88311; 88313; 88333; 88341; 88342; 90471; 90662; 96365; 96367; A9503; A9577; G0008; G0103; J2250; J2543; J3010; J3370; J3490

== ENCOUNTER 2019-03-01 10:09 | Day surgery (SDC) | payer MEDICARE, OTHER ==
[2019-02-28 11:00] VITALS: BMI 29.9
[2019-03-01] MEDS ORDERED: Ketorolac Tromethamine 30 MG/ML VIAL ONE (10:40)
[2019-03-01 11:06] LABS: #Neutrophils 8.6 thou/uL (1.40-6.50); %Basophils 0.3 % (0.0-1.0); %Eosinophils 0.4 % (0.0-10.0); %Lymphocytes 17.2 % (21.0-51.0); %Monocytes 8.4 % (0.0-10.0); %Neutrophils 73.8 % (42.0-75.0); Hemoglobin 9.6 g/dL (14.0-18.0); Mean Corpuscular HGB CONC 32.2 g/dL (32.0-36.0); Mean Corpuscular Hemoglobin 25.5 pg (27.0-31.0); Platelet Count 234 thou/uL (130-400); RBC Distribution Width 15.2 % (11.5-14.5); Red Blood Cell (RBC) Count 3.75 mill/uL (4.70-6.10); White Blood Cell (WBC) Count 11.6 thou/uL (4.8-10.8)
[2019-03-01] MEDS ORDERED: PROPOFOL 200 MG/20 ML VIAL ONE (11:22)
[2019-03-01 11:26] LABS: Anion Gap 15 mmol/L (10-20); BUN (Urea Nitrogen) 29 mg/dL (8.4-25.7); Calc. Creatinine Clearance 125 mL/min (70-130); Calcium 8.4 mg/dL (7.8-10.44); Carbon Dioxide 23 mmol/L (23-31); Chloride 100 mmol/L (98-107); Estimated GFR-MDRD Greater than 90; Glucose 114 mg/dL (80-115); Potassium 3.4 mmol/L (3.5-5.1); Sodium 135 mmol/L (136-145)
[2019-03-01] MEDS ORDERED: Midazolam HCl 2 mg/2 ml Vial ONE (12:31)
[2019-03-01] MEDS ORDERED: Fentanyl 100 MCG/2 ML VIAL ONE (12:31)
[2019-03-01] MEDS ORDERED: Lidocaine 1% (PF) 30 ML VIAL ONE (12:33)
[2019-03-01] MEDS ORDERED: Bupivacaine HCl 0.5%/Epinephrine 1:200,000/PF 30 ml Vial ONE (12:33)
[2019-03-01] MEDS ORDERED: Sodium Chloride 0.9% 0 ML ONE (12:33)
--- NOTE | 2019-03-01 14:27 | RAD ---
Exam: Chest one view HISTORY:Check Mediport catheter placement Comparison: 01/14/2019 FINDINGS: Cardiac silhouette:Upper normal cardiac silhouette. Aorta: Atherosclerosis of the aortic knob Pulmonary vessels: Normal Costophrenic angles: Clear Lines and tubes: Interval placement of a right-sided Mediport catheter with the distal tip projecting over the expected region of the superior vena cava. LUNGS: Chronic changes, without consolidation or mass. Stable calcified granuloma in the right upper lobe Pneumothorax: No pneumothorax Osseous abnormalities: No osseous abnormalities. Stable metallic shrapnel projecting over the left sc apula and clavicle. IMPRESSION: 1. Interval placement of a right-sided Mediport catheter. No pneumothorax.
--- NOTE | 2019-03-01 23:39 | OP ---
DATE OF PROCEDURE: 03/01/2019 PREOPERATIVE DIAGNOSIS: Metastatic cancer to bones. POSTOPERATIVE DIAGNOSIS: Metastatic cancer to bones PROCEDURE PERFORMED: Placement of right subclavian standard-sized power compatible MediPort. ANESTHESIA: Total intravenous anesthesia with local using 0.25% Marcaine with epinephrine. INDICATIONS: The patient is a 68-year-old male. He was recently diagnosed with metastatic malignancy to his bones. Chemotherapy has been recommended. MediPort is requested for this purpose. DESCRIPTION OF PROCEDURE: Informed consent was obtained. The patient was taken to the operating room where total intravenous anesthesia was obtained with the patient in supine position. Right periclavicular area was prepped with ChloraPrep and draped in sterile fashion. Local anesthetic was infiltrated and a large-gauge needle was passed under the clavicle in the subclavian vein. Guidewire was passed through the needle and fluoroscopically confirmed to enter the superior vena cava. Additional local anesthetic was infiltrated and transverse incision was created based on needle insertion site. A subcutaneous pocket was dissected inferiorly. Introducer dilator was passed over the guidewire under fluoroscopic guidance. The guidewire and dilator were removed, and the catheter was passed through the introducer. The tip of the catheter was positioned at the atriocaval junction and the catheter was trimmed to the appropriate length and secured to the locking hub of the MediPort. The port was then placed in the subcutaneous pocket where it was secured to the pectoral fascia with 2 interrupted sutures of 3-0 Prolene. The incision was then closed in layers with 3-0 and 4-0 Monocryl. Additional local anesthetic was infiltrated. The port was cannulated with a Jack needle and it aspirated blood freely and was flushed with heparinized saline. Dermabond was placed externally on the skin incision. There were no complications. Blood loss was negligible. The patient tolerated the procedure well and was taken to recovery room in stable condition. FINDINGS: I selected a standard size port and placed this in the right subclavian vein uneventfully. Fluoroscopy was used throughout. The patient had normal internal and external anatomy. There were no complications. The patient tolerated the procedure well and was taken to recovery room in stable condition. Job ID: [id number]
--- NOTE | 2019-03-03 16:23 | EKG ---
Test Reason : PREOP Blood Pressure : / mmHG Vent. Rate : 074 BPM Atrial Rate : 074 BPM P-R Int : 176 ms QRS Dur : 150 ms QT Int : 482 ms P-R-T Axes : 038 -06 020 degrees QTc Int : 535 ms Normal sinus rhythm Right bundle branch block Abnormal ECG When compared with ECG of 19-FEB-2012 04:37, [place] interval has decreased Confirmed by DR. Juarez SON ([id number]) on 03/03/2019 4:23:30 PM Referred By: JEF Confirmed By:DR. Juarez SON
== END 2019-03-01 14:50 | disposition home or self-care (01) ==
LOC: SDC 10:09
PROVIDERS: ATTEND Specialist
PROC: 02HV33Z Insertion of Infusion Device into Superior Vena Cava, Percutaneous Approach (ICD-10-PCS; principal; 2019-03-01)
DX: C79.51 Secondary malignant neoplasm of bone (principal); C80.1 Malignant (primary) neoplasm, unspecified; I10 Essential (primary) hypertension; Z79.899 Other long term (current) drug therapy; Z87.891 Personal history of nicotine dependence
CPT/HCPCS: 36561; 71045; 80048; 85025; 93005; C1788; 93010; J0131; J0670; J0690; J1642; J1885; J2001; J2250; J2704; J3010

== ENCOUNTER 2019-03-25 09:33 | Day surgery (SDC) | payer MEDICARE, OTHER ==
[~2019-03-25 09:33] MED LIST changes: +Acetaminophen 500 MG TAB PO SCH; +Dexamethasone 10 MG in Sodium Chloride 0.9% 50 ML IVPB SCH; +Fluorouracil 800 MG in Dextrose 5% in Water 50 ML IVPB SCH; -Gadobenate Dimeglumine 529 MG/1 ML (20ML VIAL) ONE; +Leucovorin Calcium 50 MG in Dextrose 5% in Water 50 ML IVPB SCH; +Oxaliplatin 170 MG in Dextrose 5% in Water 500 ML IVPB SCH; +Palonosetron HCl 0.25 MG in Sodium Chloride 0.9% 50 ML IVPB SCH; +SODIUM CHLORIDE 0.9% IVPB SCH; +TRASTUZUMAB IVPB SCH; +ZOLEDRONIC ACID IVPB SCH; +diphenhydrAMINE 25 MG in Sodium Chloride 0.9% 50 ML IVPB SCH
[2019-03-25] MEDS ORDERED: Sodium Chloride 0.9% 20 ML ONE (09:38)
[2019-03-25 11:36] VITALS: BP 126/60; TEMP 100.6
== END 2019-03-25 17:07 | disposition home or self-care (01) ==
LOC: ONC/OP 09:33
PROVIDERS: ATTEND Internal Medicine Hematology & Oncology
DX: Z51.11 Encounter for antineoplastic chemotherapy (principal); C16.8 Malignant neoplasm of overlapping sites of stomach; C79.51 Secondary malignant neoplasm of bone
CPT/HCPCS: 36415; 80053; 82248; 82378; 83615; 84100; 84550; 96367; 96375; 96413; 96415; 96416; 96417; J0640; J1100; J1200; J2469; J3489; J7050; J7070; J9190; J9263; J9355

== ENCOUNTER 2019-03-28 08:05 | Day surgery (SDC) | payer MEDICARE, OTHER ==
[2019-03-28] MEDS ORDERED: diphenhydrAMINE 25 MG CAP PO PRN (08:38)
[2019-03-28] MEDS ORDERED: Acetaminophen 500 MG TAB PO PRN (08:38)
[2019-03-28 16:25] VITALS: TEMP 98.8
[2019-03-28 16:31] VITALS: BP 142/63
== END 2019-03-28 16:32 | disposition home or self-care (01) ==
LOC: ONC/OP 08:05
PROVIDERS: ATTEND Internal Medicine Hematology & Oncology
PROC: 30233N1 Transfusion of Nonautologous Red Blood Cells into Peripheral Vein, Percutaneous Approach (ICD-10-PCS; principal; 2019-03-28)
PROC: 30233R1 Transfusion of Nonautologous Platelets into Peripheral Vein, Percutaneous Approach (ICD-10-PCS; 2019-03-28)
DX: D64.9 Anemia, unspecified (principal); D69.6 Thrombocytopenia, unspecified
CPT/HCPCS: 36430; 86850; 86900; 86901; P9016; Q0163

== ENCOUNTER 2019-04-01 12:54 | Day surgery (SDC) | payer MEDICARE, OTHER ==
[~2019-04-01 12:54] MED LIST changes: -Acetaminophen 500 MG TAB PO SCH; -Dexamethasone 10 MG in Sodium Chloride 0.9% 50 ML IVPB SCH; -Fluorouracil 800 MG in Dextrose 5% in Water 50 ML IVPB SCH; -Leucovorin Calcium 50 MG in Dextrose 5% in Water 50 ML IVPB SCH; -Oxaliplatin 170 MG in Dextrose 5% in Water 500 ML IVPB SCH; -Palonosetron HCl 0.25 MG in Sodium Chloride 0.9% 50 ML IVPB SCH; -ZOLEDRONIC ACID IVPB SCH; -diphenhydrAMINE 25 MG in Sodium Chloride 0.9% 50 ML IVPB SCH
[2019-04-01] MEDS ORDERED: Sodium Chloride 0.9% 20 ML ONE (14:49)
== END 2019-04-01 15:17 | disposition home or self-care (01) ==
LOC: ONC/OP 12:54
PROVIDERS: ATTEND Internal Medicine Hematology & Oncology
DX: Z51.12 Encounter for antineoplastic immunotherapy (principal); C16.8 Malignant neoplasm of overlapping sites of stomach; C79.51 Secondary malignant neoplasm of bone
CPT/HCPCS: 96413; J1642

== ENCOUNTER → 2019-04-16 | Day surgery (SDC) | payer MEDICARE, OTHER ==
[~2019-04-16] MED LIST changes: +Dexamethasone 10 MG in Sodium Chloride 0.9% 50 ML IVPB SCH; +Fluorouracil 800 MG in Dextrose 5% in Water 50 ML IVPB SCH; +Leucovorin Calcium 50 MG in Dextrose 5% in Water 50 ML IVPB SCH; +Oxaliplatin 170 MG in Dextrose 5% in Water 500 ML IVPB SCH; +Palonosetron HCl 0.25 MG in Sodium Chloride 0.9% 50 ML IVPB SCH; +Sodium Chloride 0.9% 20 ML ONE
[2019-04-16 09:17] LABS: Hemoglobin 8.5 g/dL (14.0-18.0); Mean Corpuscular HGB CONC 32.3 g/dL (32.0-36.0); Mean Corpuscular Hemoglobin 27.7 pg (27.0-31.0); Mean Platelet Volume 7.4 fL (7.4-10.4); Platelet Count 138 thou/uL (130-400); RBC Distribution Width 20.4 % (11.5-14.5); Red Blood Cell (RBC) Count 3.05 mill/uL (4.70-6.10); White Blood Cell (WBC) Count 6.5 thou/uL (4.8-10.8)
[2019-04-16 09:21] VITALS: BP 154/67; TEMP 98.1
[2019-04-16 09:40] LABS: Anisocytosis MODERATE=16-30 cells (100X) (0-5/hpf); Band 18 % (5-11); Blast 2 % (0-0); Eosinophils 2 % (0-10); Lymphocytes 14 % (21-51); MDiff Complete? YES; Metamyelocyte 6 % (0-0); Monocytes 14 % (0-10); Myelocyte 10 % (0-0); Neutrophil 34 % (42-75); Nucleated RBC 9 % (0); Polychromasia MODERATE = 3-4 cells (100X) (0-2/hpf); Reflex for Review?? NO; Tear Drops SLIGHT = 2-5 cells (100X) (0-1/hpf)
== END ==
LOC: ONC/OP 08:05
PROVIDERS: ATTEND Internal Medicine Hematology & Oncology
DX: Z51.11 Encounter for antineoplastic chemotherapy (principal); C16.8 Malignant neoplasm of overlapping sites of stomach; C79.51 Secondary malignant neoplasm of bone
CPT/HCPCS: 85025; 96366; 96375; 96413; 96415; 96417; J0640; J1100; J2469; J7070; J9190; J9263

== ENCOUNTER 2019-04-23 08:46 | Day surgery (SDC) | payer MEDICARE, OTHER ==
[~2019-04-23 08:46] MED LIST changes: -Dexamethasone 10 MG in Sodium Chloride 0.9% 50 ML IVPB SCH; -Fluorouracil 800 MG in Dextrose 5% in Water 50 ML IVPB SCH; -Leucovorin Calcium 50 MG in Dextrose 5% in Water 50 ML IVPB SCH; -Oxaliplatin 170 MG in Dextrose 5% in Water 500 ML IVPB SCH; -Palonosetron HCl 0.25 MG in Sodium Chloride 0.9% 50 ML IVPB SCH; -Sodium Chloride 0.9% 20 ML ONE
[2019-04-23] MEDS ORDERED: Sodium Chloride 0.9% 20 ML ONE (08:50)
[2019-04-23 08:53] VITALS: BP 124/58; TEMP 98.4
== END 2019-04-23 10:52 | disposition home or self-care (01) ==
LOC: ONC/OP 08:46
PROVIDERS: ATTEND Internal Medicine Hematology & Oncology
DX: Z51.12 Encounter for antineoplastic immunotherapy (principal); C16.8 Malignant neoplasm of overlapping sites of stomach; C79.51 Secondary malignant neoplasm of bone
CPT/HCPCS: 96413; J1642

== ENCOUNTER 2019-04-30 08:39 | Day surgery (SDC) | payer MEDICARE, OTHER ==
[~2019-04-30 08:39] MED LIST changes: +Fluorouracil 800 MG in Dextrose 5% in Water 50 ML IVPB SCH; +Leucovorin Calcium 50 MG in Dextrose 5% in Water 50 ML IVPB SCH; +Oxaliplatin 170 MG in Dextrose 5% in Water 500 ML IVPB SCH; +Palonosetron HCl 0.25 MG in Sodium Chloride 0.9% 50 ML IVPB SCH; +ZOLEDRONIC ACID IVPB SCH
[2019-04-30] MEDS ORDERED: Sodium Chloride 0.9% 20 ML ONE (08:47)
[2019-04-30 09:13] VITALS: BP 143/66; TEMP 98.6
== END 2019-04-30 14:28 | disposition home or self-care (01) ==
LOC: ONC/OP 08:39
PROVIDERS: ATTEND Internal Medicine Hematology & Oncology
DX: Z51.11 Encounter for antineoplastic chemotherapy (principal); C16.8 Malignant neoplasm of overlapping sites of stomach; C79.51 Secondary malignant neoplasm of bone
CPT/HCPCS: 96367; 96375; 96413; 96415; 96417; J0640; J1100; J2469; J3489; J7050; J7070; J9190; J9263

== ENCOUNTER → 2019-05-07 | Day surgery (SDC) | payer MEDICARE, OTHER ==
[~2019-05-07] MED LIST changes: -Fluorouracil 800 MG in Dextrose 5% in Water 50 ML IVPB SCH; -Leucovorin Calcium 50 MG in Dextrose 5% in Water 50 ML IVPB SCH; -Oxaliplatin 170 MG in Dextrose 5% in Water 500 ML IVPB SCH; -Palonosetron HCl 0.25 MG in Sodium Chloride 0.9% 50 ML IVPB SCH; +Sodium Chloride 0.9% 20 ML ONE; -ZOLEDRONIC ACID IVPB SCH
[2019-05-07 08:29] VITALS: BP 140/62; TEMP 98.6
== END ==
LOC: ONC/OP 07:52
PROVIDERS: ATTEND Internal Medicine Hematology & Oncology
DX: Z51.11 Encounter for antineoplastic chemotherapy (principal); C16.8 Malignant neoplasm of overlapping sites of stomach; C79.51 Secondary malignant neoplasm of bone
CPT/HCPCS: 96413; J1642

== ENCOUNTER 2019-05-14 08:15 | Day surgery (SDC) | payer MEDICARE, OTHER ==
[~2019-05-14 08:15] MED LIST changes: +Fluorouracil 800 MG in Dextrose 5% in Water 50 ML IVPB SCH; +Leucovorin Calcium 50 MG in Dextrose 5% in Water 50 ML IVPB SCH; +Oxaliplatin 170 MG in Dextrose 5% in Water 500 ML IVPB SCH; +Palonosetron HCl 0.25 MG in Sodium Chloride 0.9% 50 ML IVPB SCH; -Sodium Chloride 0.9% 20 ML ONE
[2019-05-14] MEDS ORDERED: Sodium Chloride 0.9% 20 ML ONE (08:27)
[2019-05-14 10:31] VITALS: BP 133/68; TEMP 98.5
== END 2019-05-14 13:41 | disposition home or self-care (01) ==
LOC: ONC/OP 08:15
PROVIDERS: ATTEND Internal Medicine Hematology & Oncology
DX: Z51.11 Encounter for antineoplastic chemotherapy (principal); C16.8 Malignant neoplasm of overlapping sites of stomach; C79.51 Secondary malignant neoplasm of bone
CPT/HCPCS: 96375; 96413; 96415; 96417; J0640; J1100; J2469; J7070; J9190; J9263

== ENCOUNTER 2019-05-21 09:39 | Day surgery (SDC) | payer MEDICARE, OTHER ==
[~2019-05-21 09:39] MED LIST changes: -Fluorouracil 800 MG in Dextrose 5% in Water 50 ML IVPB SCH; -Leucovorin Calcium 50 MG in Dextrose 5% in Water 50 ML IVPB SCH; -Oxaliplatin 170 MG in Dextrose 5% in Water 500 ML IVPB SCH; -Palonosetron HCl 0.25 MG in Sodium Chloride 0.9% 50 ML IVPB SCH
[2019-05-21] MEDS ORDERED: Sodium Chloride 0.9% 20 ML ONE (09:47)
[2019-05-21 10:10] VITALS: BP 119/55; TEMP 98.5
== END 2019-05-21 13:03 | disposition home or self-care (01) ==
LOC: ONC/OP 09:39
PROVIDERS: ATTEND Internal Medicine Hematology & Oncology
DX: Z51.12 Encounter for antineoplastic immunotherapy (principal); C79.51 Secondary malignant neoplasm of bone; C16.8 Malignant neoplasm of overlapping sites of stomach
CPT/HCPCS: 96413; J1642

== ENCOUNTER 2019-05-28 08:39 | Day surgery (SDC) | payer MEDICARE, OTHER ==
[~2019-05-28 08:39] MED LIST changes: +Fluorouracil 800 MG in Dextrose 5% in Water 50 ML IVPB SCH; +Leucovorin Calcium 50 MG in Dextrose 5% in Water 50 ML IVPB SCH; +Oxaliplatin 170 MG in Dextrose 5% in Water 500 ML IVPB SCH; +Palonosetron HCl 0.25 MG in Sodium Chloride 0.9% 50 ML IVPB SCH
[2019-05-28] MEDS ORDERED: Sodium Chloride 0.9% 20 ML ONE (08:43)
[2019-05-28 11:24] VITALS: BP 135/63; TEMP 98.4
== END 2019-05-28 13:20 | disposition home or self-care (01) ==
LOC: ONC/OP 08:39
PROVIDERS: ATTEND Internal Medicine Hematology & Oncology
DX: Z51.12 Encounter for antineoplastic immunotherapy (principal); C79.51 Secondary malignant neoplasm of bone; C16.8 Malignant neoplasm of overlapping sites of stomach
CPT/HCPCS: 96366; 96375; 96413; 96415; 96417; J0640; J1100; J2469; J7070; J9190; J9263

== ENCOUNTER 2019-06-04 08:06 | Day surgery (SDC) | payer MEDICARE, OTHER ==
[~2019-06-04 08:06] MED LIST changes: -Fluorouracil 800 MG in Dextrose 5% in Water 50 ML IVPB SCH; -Leucovorin Calcium 50 MG in Dextrose 5% in Water 50 ML IVPB SCH; -Oxaliplatin 170 MG in Dextrose 5% in Water 500 ML IVPB SCH; -Palonosetron HCl 0.25 MG in Sodium Chloride 0.9% 50 ML IVPB SCH
[2019-06-04] MEDS ORDERED: Sodium Chloride 0.9% 20 ML ONE (09:26)
[2019-06-04 15:00] VITALS: BP 121/58; TEMP 98.7
== END 2019-06-04 15:00 | disposition home or self-care (01) ==
LOC: ONC/OP 08:06
PROVIDERS: ATTEND Internal Medicine Hematology & Oncology
DX: Z51.12 Encounter for antineoplastic immunotherapy (principal); C79.51 Secondary malignant neoplasm of bone; C16.8 Malignant neoplasm of overlapping sites of stomach
CPT/HCPCS: 96413; J1642

== ENCOUNTER 2019-06-11 09:24 | Day surgery (SDC) | payer MEDICARE, OTHER ==
[~2019-06-11 09:24] MED LIST changes: +Fluorouracil 800 MG in Dextrose 5% in Water 50 ML IVPB SCH; +Leucovorin Calcium 50 MG in Dextrose 5% in Water 50 ML IVPB SCH; +Oxaliplatin 170 MG in Dextrose 5% in Water 500 ML IVPB SCH; +Palonosetron HCl 0.25 MG in Sodium Chloride 0.9% 50 ML IVPB SCH
[2019-06-11] MEDS ORDERED: Sodium Chloride 0.9% 20 ML ONE (10:53)
[2019-06-11 14:50] VITALS: BP 153/72; TEMP 98.8
== END 2019-06-11 14:52 | disposition home or self-care (01) ==
LOC: ONC/OP 09:24
PROVIDERS: ATTEND Internal Medicine Hematology & Oncology
DX: Z51.11 Encounter for antineoplastic chemotherapy (principal); C16.8 Malignant neoplasm of overlapping sites of stomach; C79.51 Secondary malignant neoplasm of bone
CPT/HCPCS: 96367; 96375; 96413; 96415; 96417; J0640; J1100; J2469; J7070; J9190; J9263

== ENCOUNTER 2019-06-18 08:16 | Day surgery (SDC) | payer MEDICARE, OTHER ==
[~2019-06-18 08:16] MED LIST changes: -Fluorouracil 800 MG in Dextrose 5% in Water 50 ML IVPB SCH; -Leucovorin Calcium 50 MG in Dextrose 5% in Water 50 ML IVPB SCH; -Oxaliplatin 170 MG in Dextrose 5% in Water 500 ML IVPB SCH; -Palonosetron HCl 0.25 MG in Sodium Chloride 0.9% 50 ML IVPB SCH
[2019-06-18] MEDS ORDERED: Sodium Chloride 0.9% 20 ML ONE (08:23)
[2019-06-18 09:33] VITALS: BP 127/60; TEMP 98.6
== END 2019-06-18 10:06 | disposition home or self-care (01) ==
LOC: ONC/OP 08:16
PROVIDERS: ATTEND Internal Medicine Hematology & Oncology
DX: Z51.12 Encounter for antineoplastic immunotherapy (principal); C16.8 Malignant neoplasm of overlapping sites of stomach; C79.51 Secondary malignant neoplasm of bone
CPT/HCPCS: 96365; J1642

== ENCOUNTER 2019-06-20 07:22 | Outpatient (CLI) | payer MEDICARE, OTHER ==
--- NOTE | 2019-06-20 11:06 | PET ---
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 FINDINGS: Physiologic uptake of radiotracer is present throughout the enteric system and along each u rinary tract. There is heterogeneous uptake of radiotracer throughout the skeletal structures. Focal areas of techn ically hypermetabolic activity (Max SUV greater than 2.5) are as follows: Right rib 5 anterolateral (Max SUV 2.8) Left rib 7 lateral (3.4) Right iliac crest anterior internal margin (3.6) Left iliac crest anterior internal margin (3.9) Right acetabulum posterior (3.3) Right femur proximal (2.9) Uptake around the stomach is not greater than expected for content. The superiormost image of the nondiagnostic CT attenuation correction images shows a subtle oval area of hyperdensity at the right frontal cerebral lobe abutting the inner calvarium. The abnormality is 1.9 cm greatest diameter, there may be a subtle area of adjacent decreased density that could repr esent vasogenic edema. This could be related to beam hardening artifact from the patient's arm, but warrants further evaluation. Postoperative changes of the left supraclavicular level. Scattered calcified granulomata throughout t he lungs. Calcification associated with the arterial structures including coronary arteries. Very small bilateral pleural effusions. IMPRESSION: Mildly hypermetabolic activity associated with scattered osseous metastatic foci, as deta iled above. While prior PET is not available for direct comparison, the intensity of hypermetabolic abnormality is much less than would be expected based on the sclerotic appearance of the widespread o sseous abnormalities and the degree of abnormality on radionuclide bone scan from January 2019. Significant improvement is suspected. Possible right frontal cerebral lesion. Please consider MRI brain, without and with gadolinium contra st, for better characterization. Atherosclerosis. Very small bilateral pleural effusions. Findings were called to Nedra at the office of Dr. Daley at the time of the report.
== END 2019-06-20 07:23 | disposition home or self-care (01) ==
LOC: PET 07:22
PROVIDERS: ATTEND Internal Medicine Hematology & Oncology
DX: C16.9 Malignant neoplasm of stomach, unspecified (principal); C79.51 Secondary malignant neoplasm of bone; G93.89 Other specified disorders of brain; I70.90 Unspecified atherosclerosis; J90 Pleural effusion, not elsewhere classified
CPT/HCPCS: 78815; A9552

== ENCOUNTER 2019-06-25 07:59 | Day surgery (SDC) | payer MEDICARE, OTHER ==
[~2019-06-25 07:59] MED LIST changes: +Fluorouracil 800 MG in Dextrose 5% in Water 50 ML IVPB SCH; +Leucovorin Calcium 50 MG in Dextrose 5% in Water 50 ML IVPB SCH; +Oxaliplatin 170 MG in Dextrose 5% in Water 500 ML IVPB SCH; +Palonosetron HCl 0.25 MG in Sodium Chloride 0.9% 50 ML IVPB SCH
[2019-06-25] MEDS ORDERED: Sodium Chloride 0.9% 20 ML ONE (08:25)
[2019-06-25 10:47] VITALS: BP 131/61; TEMP 98.2
== END 2019-06-25 13:30 | disposition home or self-care (01) ==
LOC: ONC/OP 07:59
PROVIDERS: ATTEND Internal Medicine Hematology & Oncology
DX: Z51.11 Encounter for antineoplastic chemotherapy (principal); C16.8 Malignant neoplasm of overlapping sites of stomach; C79.51 Secondary malignant neoplasm of bone
CPT/HCPCS: 96367; 96375; 96413; 96415; 96417; J0640; J1100; J2469; J7070; J9190; J9263

== ENCOUNTER 2019-07-01 13:30 | Outpatient (CLI) | payer MEDICARE, OTHER | END 2019-07-01 13:31 | disposition home or self-care (01) | LOC: ULT 13:30 | PROVIDERS: ATTEND Internal Medicine Hematology & Oncology | DX: Z51.11 Encounter for antineoplastic chemotherapy (principal); C16.8 Malignant neoplasm of overlapping sites of stomach; C79.51 Secondary malignant neoplasm of bone; I08.1 Rheumatic disorders of both mitral and tricuspid valves; Z79.899 Other long term (current) drug therapy | CPT/HCPCS: 93306 ==

== ENCOUNTER 2019-07-02 08:01 | Day surgery (SDC) | payer MEDICARE, OTHER ==
[~2019-07-02 08:01] MED LIST changes: -Fluorouracil 800 MG in Dextrose 5% in Water 50 ML IVPB SCH; -Leucovorin Calcium 50 MG in Dextrose 5% in Water 50 ML IVPB SCH; -Oxaliplatin 170 MG in Dextrose 5% in Water 500 ML IVPB SCH; -Palonosetron HCl 0.25 MG in Sodium Chloride 0.9% 50 ML IVPB SCH
[2019-07-02] MEDS ORDERED: Sodium Chloride 0.9% 20 ML ONE (08:33)
[2019-07-02 09:18] VITALS: BP 136/61; TEMP 98.6
== END 2019-07-02 09:44 | disposition home or self-care (01) ==
LOC: ONC/OP 08:01
PROVIDERS: ATTEND Internal Medicine Hematology & Oncology
DX: Z51.12 Encounter for antineoplastic immunotherapy (principal); C16.8 Malignant neoplasm of overlapping sites of stomach; C79.51 Secondary malignant neoplasm of bone
CPT/HCPCS: 96413; J1642

== ENCOUNTER 2019-07-16 08:45 | Day surgery (SDC) | payer MEDICARE, OTHER ==
[~2019-07-16 08:45] MED LIST changes: +Acetaminophen 500 MG TAB PO SCH; -SODIUM CHLORIDE 0.9% IVPB SCH; -TRASTUZUMAB IVPB SCH; +Zoledronic Acid 4 MG in Sodium Chloride 0.9% 100 ML IVPB SCH; +diphenhydrAMINE 25 MG in Sodium Chloride 0.9% 50 ML IVPB SCH
[2019-07-16] MEDS ORDERED: Sodium Chloride 0.9% 20 ML ONE ×2 (08:57→09:02)
[2019-07-16 09:11] VITALS: BP 167/74; TEMP 98.6
[2019-07-16] MEDS: SODIUM CHLORIDE 0.9% IVPB SCH ×2 (10:07→10:08)
[2019-07-16] MEDS: TRASTUZUMAB IVPB SCH ×2 (10:07→10:08)
== END 2019-07-16 11:03 | disposition home or self-care (01) ==
LOC: ONC/OP 08:45
PROVIDERS: ATTEND Internal Medicine Hematology & Oncology
DX: Z51.11 Encounter for antineoplastic chemotherapy (principal); C16.8 Malignant neoplasm of overlapping sites of stomach; C79.51 Secondary malignant neoplasm of bone
CPT/HCPCS: 96367; 96375; 96413; J1200; J1642; J3489; J3490

== ENCOUNTER 2019-07-19 05:14 | Inpatient (IN) | payer MEDICARE, OTHER ==
[2019-07-19] MEDS ORDERED: Ondansetron PF 4 MG/2 ML Vial IVP PRN (05:36)
[2019-07-19] MEDS ORDERED: Acetaminophen 325 MG TAB PO PRN (05:36)
[2019-07-19 06:31] LABS: Troponin I 0.038 ng/mL (< 0.028)
--- NOTE | 2019-07-19 06:42 | HP ---
CHIEF COMPLAINT: Shortness of breath. HISTORY OF PRESENT ILLNESS: Mr. Quezada is a 69-year-old male with past medical history of metastatic cancer of unknown primary, metastatic to the bone on chemotherapy, presented to [facility] for shortness of breath that started 3 hours prior to arrival associated with cough. Shortness of breath is worse with exertion. Oxygen saturation on arrival was 80% to 81%, placed on oxygen, went up to 94%. The patient has a history of hypertension, arthritis, and metastatic cancer of unknown primary. Chest x-ray shows bilateral interstitial opacities/pulmonary edema. CTA of the chest was done, which was negative for pulmonary embolism. It did show pleural effusions and pulmonary vascular congestion, being on chemotherapy, suspicion for pneumonia and septic workup was done. Viral testing was done including COVID-19 test. The patient is being transferred here for admission and further management. PAST MEDICAL HISTORY: As mentioned above in the history of present illness. PAST SURGICAL HISTORY: 1. Eye surgery. 2. Port placement to the right chest wall. 3. Eye surgery. SOCIAL HISTORY: Drinks alcohol socially. Former cigarette smoker. FAMILY HISTORY: Reviewed and noncontributory. ALLERGIES: LATEX. CURRENT MEDICATIONS: Please see home medication reconciliation form for updated medication. REVIEW OF SYSTEMS: Review of 14 systems negative except what is mentioned in the history of present illness. PHYSICAL EXAMINATION: GENERAL: The patient is awake and alert, in moderate respiratory distress. VITAL SIGNS: Blood pressure 167/83, pulse is 94, respiratory rate is 24, temperature is 98, oxygen saturation 98% on 2 L/minute nasal cannula. HEAD AND NECK: Normocephalic, atraumatic. NECK: Supple. CHEST: Coarse bilateral breath sounds. HEART: S1, S2. Regular. ABDOMEN: Soft, nontender. Bowel sounds present. NEUROLOGIC: Awake, alert, oriented. No focal deficits. PSYCH: Unable to assess. EXTREMITIES: No clubbing or cyanosis. LABORATORY DATA: CT of the chest as mentioned above in history of present illness. Sodium 139, potassium 3.5, BUN is 10, creatinine 0.6, alkaline phosphatase 261, BNP is 126. WBC is 8.3, hemoglobin 12.9, and platelet is 135. CTA of the chest as mentioned above in the history of present illness. ASSESSMENT: 1. Acute hypoxic respiratory failure. Oxygen saturation was in the low 80s. 2. Acute congestive heart failure?.. 3. Suspected COVID-19 infection given the patient immunocompromised state and suspicion for pneumonia initially. Viral testing and COVID-19 testing was done in the ED. 4. Bacterial pneumonia, less likely, but the patient is immunocompromised, cannot be entirely ruled out. 5. Metastatic cancer, unknown primary with metastasis to the bone. 6. Hypertension. PLAN: 1. Admit. 2. Oxygen to keep saturation more than 92%. 3. Septic workup including viral testing was done in the ED. 4. The patient had a 2D echo back in June 2019, did show mildly depressed left ventricular function, congestive heart failure in the differential diagnosis, we will start the patient on IV diuresis. 5. IV antibiotics were given in the ED initially for suspected pneumonia, reassess in a.m. 6. Reconcile home medications. 7. DVT prophylaxis appropriate. 8. Expected length of stay, 2 midnights or more. Job ID: [id number]
[2019-07-19] MEDS: Furosemide 20 MG/2 ML VIAL SLOW IVP SCH ×2 (07:59→14:30)
[2019-07-19] MEDS: Heparin 5,000 UNITS/ML VIAL SC SCH ×2 (08:52→20:30)
[2019-07-19] MEDS: Famotidine 20 MG TAB PO SCH ×2 (10:18→20:29)
[2019-07-19 11:59] LABS: Troponin I 0.041 ng/mL (< 0.028)
--- NOTE | 2019-07-19 16:24 | PDOC.EVN ---
Event Note - Event Note Event Note: received patient this morning. Patient has been on folfox (since apr 04, last dose Jun 24) thereafter herceptin, all of which have cardiotoxic side effects which are required for monitoring. Patient HD stable and breathing and satting well on RA. Will continue diuresis pending ECHO.
--- NOTE | 2019-07-19 18:41 | CON ---
DATE OF CONSULTATION: REASON FOR CONSULTATION: Congestive heart failure versus pneumonia in a possible COVID-19 patient. This consultation was done by reviewing the chart and reviewing x-rays and other information in the chart as well as reviewing histories and physical. Per the current guidelines, we are trying to minimize the amount of staff in the room still a definitive diagnosis about the COVID status is made. This is essentially telemedicine consultation. HISTORY OF PRESENT ILLNESS: Mr. Laguna is a 69-year-old gentleman. 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 The origin is unknown primary. The patient came to the hospital with difficulty breathing. The chest x-ray showed diffuse interstitial infiltrates compatible either with pneumonia versus congestive heart failure. The patient is on chemotherapy for the cancer metastatic to his bones. The patient was hypoxemic in the emergency room. The patient has a history of hypertension and arthritis. The patient is receiving intravenous diuretics now. PAST SURGICAL HISTORY: 1. Eye surgery. 2. Port placement, right chest wall. SOCIAL HISTORY: Social alcohol intake. Former cigarette smoker. FAMILY HISTORY: Noncontributory. MEDICATIONS: Medications will be outlined below. REVIEW OF SYSTEMS: Per the chart, review of 14 systems is negative except for what is mentioned in the history of present illness. PHYSICAL EXAMINATION: This is per the chart. VITAL SIGNS: Blood pressure is 167/83, pulse was 94, respiratory rate 24, oxygen saturation 98% on 2 L/minute nasal cannula. HEAD AND NECK: Normocephalic and atraumatic. Neck is supple. CHEST: Coarse bilateral breath sounds. HEART: Normal S1, normal S2. No murmur, rub, or gallop. ABDOMEN: Soft and nontender. EXTREMITIES: No clubbing or cyanosis. No edema mentioned. That physical examination was from the admitting physician. PERTINENT LABORATORY DATA: The troponin was 0.041. The hemoglobin is 12.9, WBC is 8.3. Sodium is 139, potassium 3.6, creatinine is 0.66. Cholesterol was 139, the last one in the chart that I can see is 2011. There was a BNP drawn, which was 126, just slightly elevated. EKG; normal sinus rhythm with a right bundle-branch block. Echocardiogram done recently showed ejection fraction 45% to 50%, that was done on 07/01/2019. Chest x-ray shows an increased interstitial markings. ASSESSMENT: 1. Right bundle-branch block. 2. Mildly depressed left ventricular function. 3. Diffuse interstitial infiltrates, probably congestive heart failure clinically, although it is currently being evaluated for possible COVID pneumonia. 4. Increased troponin level, likely demand ischemia, not a myocardial infarction. PLAN: 1. Agree with diuretic therapy. 2. Aspirin as the patient does have coronary artery disease on the CT scan. 3. Repeat chest x-ray tomorrow morning. 4. Can cancel the echocardiogram as he has already had one recently. 5. We will order chest x-ray tomorrow morning. 6. Since he is on furosemide, we would also recommend giving him potassium. We will follow with you. Job ID: [id number]
[2019-07-19] MEDS: Carvedilol 3.125 MG TAB PO SCH (20:29)
[2019-07-19] MEDS: Latanoprost 0.005% Ophth Soln 2.5 ml Bottle EA EYE SCH (20:34)
[2019-07-20] MEDS: Furosemide 20 MG/2 ML VIAL SLOW IVP SCH ×2 (06:22→13:17)
[2019-07-20 06:29] LABS: #Basophils 0.1 thou/uL (0.0-0.2); #Eosinphils 0.1 thou/uL (0.0-0.7); #Lymphocytes 1.4 thou/uL (1.20-3.40); #Monocytes 0.8 thou/uL (0.11-0.59); #Neutrophils 3.1 thou/uL (1.40-6.50); %Basophils 1.2 % (0.0-1.0); %Eosinophils 1.5 % (0.0-10.0); %Lymphocytes 26.1 % (21.0-51.0); %Monocytes 14.7 % (0.0-10.0); %Neutrophils 56.4 % (42.0-75.0); Hemoglobin 11.4 g/dL (14.0-18.0); Mean Corpuscular HGB CONC 32.1 g/dL (32.0-36.0); Mean Corpuscular Volume 90.5 fL (78.0-98.0); Mean Platelet Volume 8.6 fL (7.4-10.4); Platelet Count 120 thou/uL (130-400); RBC Distribution Width 15.4 % (11.5-14.5); Red Blood Cell (RBC) Count 3.93 mill/uL (4.70-6.10); White Blood Cell (WBC) Count 5.4 thou/uL (4.8-10.8)
[2019-07-20 06:43] LABS: Albumin 3.3 g/dL (3.4-4.8)
[2019-07-20 06:44] LABS: Chloride 108 mmol/L (98-107); Sodium 140 mmol/L (136-145)
[2019-07-20 06:45] LABS: Calcium 8.2 mg/dL (7.8-10.44); Glucose 96 mg/dL (80-115)
[2019-07-20 06:46] LABS: Globulin 2.7 g/dL (2.4-3.5)
[2019-07-20 06:47] LABS: Anion Gap 10 mmol/L (10-20); Bilirubin, Total 0.8 mg/dL (0.2-1.2); Carbon Dioxide 25 mmol/L (23-31)
[2019-07-20 06:48] LABS: Alkaline Phosphatase 214 U/L (40-110)
[2019-07-20 06:49] LABS: Calc. Creatinine Clearance 136 mL/min (70-130); Estimated GFR-MDRD Greater than 90
[2019-07-20 06:50] LABS: BUN (Urea Nitrogen) 10 mg/dL (8.4-25.7)
[2019-07-20 06:51] LABS: ALT (SGPT) 10 U/L (8-55); AST (SGOT) 30 U/L (5-34)
--- NOTE | 2019-07-20 07:49 | RAD ---
PORTABLE CHEST: Date: 07/20/2019 PROVIDED CLINICAL HISTORY: Shortness of breath. FINDINGS: Comparison with 07/19/2019. Cardiac and mediastinal silhouette is unchanged in appearance. There has been interval improvement in pulmonary vascular congestion. Cardiac silhouette remains enlarged. Vascular calcification and right subclavian implanted port are again seen. Left basilar air space disease cannot be excluded. There i s no evidence for pneumothorax. IMPRESSION: Improvement in pulmonary vascular congestion. Possible left basilar air space disease. Consider corre caroline with PA and lateral views of chest. POS: GLENROY
[2019-07-20] MEDS ORDERED: Potassium Chloride 20 MEQ TAB PO SCH (08:30)
[2019-07-20] MEDS: Heparin 5,000 UNITS/ML VIAL SC SCH ×2 (08:38→20:44)
[2019-07-20] MEDS: Carvedilol 3.125 MG TAB PO SCH ×2 (08:39→20:44)
[2019-07-20] MEDS: Famotidine 20 MG TAB PO SCH ×2 (08:39→20:44)
[2019-07-20] MEDS: Aspirin 81 mg Enteric Coated Tablet PO SCH (08:39)
--- NOTE | 2019-07-20 13:52 | PDOC.HOSPP ---
- Subjective Encounter Date: 07/20/19 Encounter Time: 08:45 Subjective: pt has no c/o, covid -ve. - Objective Vital Signs & Weight: Vital Signs (12 hours) Temp Pulse Resp BP Pulse Ox 07/20/19 13:13 97.5 F L 70 18 163/74 H 97 07/20/19 08:22 98.6 F 69 16 170/79 H 94 L 07/20/19 04:56 98.3 F 72 20 156/74 H 94 L 07/20/19 02:33 94 L Weight Weight 201 lb I&O: 07/19/19 07/20/19 07/21/19 06:59 06:59 06:59 Intake Total 840 Output Total 1421 1150 Balance -2135 -1150 Result Diagrams: 07/20/19 06:19 07/20/19 06:19 Hospitalist ROS - Medication Medications: Active Medications Generic Name Dose Route Start Last Admin Trade Name Freq PRN Reason Stop Dose Admin Aspirin 81 mg 07/20/19 09:00 07/20/19 08:39 Ecotrin PO 81 mg DAILY ABRAHAM Administration Carvedilol 3.125 mg 07/19/19 21:00 07/20/19 08:39 Coreg PO 3.125 mg BID ABRAHAM Administration Famotidine 20 mg 07/19/19 09:00 07/20/19 08:39 Pepcid PO 20 mg BID ABRAHAM Administration Furosemide 20 mg 07/19/19 06:00 07/20/19 13:17 Lasix SLOW IVP 20 mg 0600,1400 ABRAHAM Administration Heparin Sodium (Porcine) 5,000 units 07/19/19 09:00 07/20/19 08:38 Heparin SC 5,000 units BID ABRAHAM Administration Latanoprost 1 drop 07/19/19 21:00 07/19/19 20:34 Xalatan 0.005% Ophth Soln EA EYE 1 drop HS ABRAHAM Administration Sodium Chloride 10 ml 07/19/19 09:00 07/20/19 08:39 Flush - Normal Saline IVF 10 ml Q12HR ABRAHAM Administration Sodium Chloride 10 ml 07/19/19 07:24 07/20/19 06:23 Flush - Normal Saline IVF 10 ml PRN PRN Administration Saline Flush - Exam General Appearance: NAD, awake alert Eye: PERRL ENT: normocephalic atraumatic Heart: RRR Respiratory: CTAB Gastrointestinal: normal bowel sounds Hosp A/P - Plan Acute hypoxic resp failure Questionable CHF excaerbation---- ruled out,pt does not look overtly vol. overload --recent echo EF 50% on --started on diuresis during admission, will monitor for a day, and dc as pt not on home lasix? --BNP only 126 - Abn troponin- type II -no aggressive intervention --vardiology is following. -- Covid - 19 pending.
[2019-07-20] MEDS: Potassium Chloride 10 MEQ TAB PO SCH (16:12)
[2019-07-20] MEDS: Latanoprost 0.005% Ophth Soln 2.5 ml Bottle EA EYE SCH (20:44)
[2019-07-21 04:57] LABS: Anion Gap 11 mmol/L (10-20); BUN (Urea Nitrogen) 12 mg/dL (8.4-25.7); Calc. Creatinine Clearance 151 mL/min (70-130); Carbon Dioxide 25 mmol/L (23-31); Chloride 108 mmol/L (98-107); Estimated GFR-MDRD Greater than 90; Glucose 84 mg/dL (80-115); Potassium 3.1 mmol/L (3.5-5.1); Sodium 141 mmol/L (136-145)
[2019-07-21] MEDS: Furosemide 20 MG/2 ML VIAL SLOW IVP SCH (06:35)
[2019-07-21] MEDS: Aspirin 81 mg Enteric Coated Tablet PO SCH (08:34)
[2019-07-21] MEDS: Potassium Chloride 10 MEQ TAB PO SCH ×2 (08:34→16:45)
[2019-07-21] MEDS: Famotidine 20 MG TAB PO SCH ×2 (08:34→20:05)
[2019-07-21] MEDS: Heparin 5,000 UNITS/ML VIAL SC SCH ×2 (08:34→20:04)
[2019-07-21] MEDS: Carvedilol 3.125 MG TAB PO SCH ×2 (08:34→20:05)
[2019-07-21] MEDS ORDERED: Potassium Chloride 20 MEQ TAB PO SCH (09:30)
--- NOTE | 2019-07-21 12:30 | PDOC.HOSPP ---
- Subjective Encounter Date: 07/21/19 Encounter Time: 11:20 Subjective: COVID - 19 neg., pt doing well. K is down, being replaced. - Objective Vital Signs & Weight: Vital Signs (12 hours) Temp Pulse Resp BP Pulse Ox 07/21/19 11:45 97.3 F L 69 20 156/73 H 97 07/21/19 08:42 98.5 F 70 18 161/71 H 93 L 07/21/19 04:25 98.4 F 70 22 H 147/67 H 94 L Weight Weight 198 lb 3.2 oz I&O: 07/20/19 07/21/19 07/22/19 06:59 06:59 06:59 Intake Total 840 840 300 Output Total 4225 1680 Balance -2135 -840 300 Result Diagrams: 07/20/19 06:19 07/21/19 04:22 Hospitalist ROS - Medication Medications: Active Medications Generic Name Dose Route Start Last Admin Trade Name Freq PRN Reason Stop Dose Admin Aspirin 81 mg 07/20/19 09:00 07/21/19 08:34 Ecotrin PO 81 mg DAILY ABRAHAM Administration Carvedilol 3.125 mg 07/19/19 21:00 07/21/19 08:34 Coreg PO 3.125 mg BID ABRAHAM Administration Famotidine 20 mg 07/19/19 09:00 07/21/19 08:34 Pepcid PO 20 mg BID ABRAHAM Administration Furosemide 20 mg 07/19/19 06:00 07/21/19 06:35 Lasix SLOW IVP 20 mg 0600,1400 ABRAHAM Administration Heparin Sodium (Porcine) 5,000 units 07/19/19 09:00 07/21/19 08:34 Heparin SC 5,000 units BID ABRAHAM Administration Latanoprost 1 drop 07/19/19 21:00 07/20/19 20:44 Xalatan 0.005% Ophth Soln EA EYE 1 drop HS ABRAHAM Administration Potassium Chloride 10 meq 07/20/19 17:00 07/21/19 08:34 Klor-Con 10 PO 10 meq BID-WM ABRAHAM Administration Sodium Chloride 10 ml 07/19/19 09:00 07/21/19 08:34 Flush - Normal Saline IVF 10 ml Q12HR ABRAHAM Administration Sodium Chloride 10 ml 07/19/19 07:24 07/21/19 06:35 Flush - Normal Saline IVF 10 ml PRN PRN Administration Saline Flush Verapamil HCl 240 mg 07/20/19 21:00 07/20/19 20:44 Calan Sr PO 240 mg 2100 ABRAHAM Administration - Exam General Appearance: NAD, awake alert Eye: PERRL ENT: normocephalic atraumatic Neck: supple Heart: RRR, normal peripheral pulses Respiratory: CTAB, normal chest expansion Gastrointestinal: soft, normal bowel sounds Hosp A/P - Plan Acute hypoxic resp failure Questionable CHF excaerbation--- Acute on chronic systolic CHF exacerbation as started on diuretics and ef showed 50%- -mild depressed sys dysfn... --recent echo EF 50% on --started on diuresis during admission, will monitor for a day, ---> as EF 50%, likely needs PO diuresis -- switched to PO lasix. --h.e. BNP only 126 - - can transition lasix from IV to po Abn troponin- type II -no aggressive intervention --cardiology is following. -- HTN - BP on the low end - reduced coreg dose w.. holds Hypokalemia --being replaced - ck mag level, keep K > 4a nd mag >2 Covid - 19 negative.
[2019-07-21] MEDS: Latanoprost 0.005% Ophth Soln 2.5 ml Bottle EA EYE SCH (20:04)
[2019-07-22 04:54] LABS: Anion Gap 12 mmol/L (10-20); BUN (Urea Nitrogen) 11 mg/dL (8.4-25.7); Calc. Creatinine Clearance 141 mL/min (70-130); Calcium 8.4 mg/dL (7.8-10.44); Carbon Dioxide 25 mmol/L (23-31); Chloride 107 mmol/L (98-107); Estimated GFR-MDRD Greater than 90; Glucose 88 mg/dL (80-115); Potassium 3.5 mmol/L (3.5-5.1); Sodium 140 mmol/L (136-145)
[2019-07-22] MEDS ORDERED: Lisinopril 5 MG TAB PO SCH (09:00)
[2019-07-22] MEDS: Heparin 5,000 UNITS/ML VIAL SC SCH ×2 (09:20→20:13)
[2019-07-22] MEDS: Aspirin 81 mg Enteric Coated Tablet PO SCH (09:21)
[2019-07-22] MEDS: Potassium Chloride 10 MEQ TAB PO SCH ×2 (09:21→18:40)
[2019-07-22] MEDS: Carvedilol 3.125 MG TAB PO SCH (09:21)
[2019-07-22] MEDS: Furosemide 40 MG TAB PO SCH (09:21)
[2019-07-22] MEDS: Famotidine 20 MG TAB PO SCH ×2 (09:21→20:12)
--- NOTE | 2019-07-22 12:23 | PDOC.HOSPP ---
- Subjective Encounter Date: 07/22/19 Encounter Time: 09:20 Subjective: pt doing well, waiting for spark tester visit. no acute events o/n. - Objective Vital Signs & Weight: Vital Signs (12 hours) Temp Pulse Resp BP Pulse Ox 07/22/19 11:27 98.8 F 83 18 150/72 H 94 L 07/22/19 07:57 99.2 F 82 16 174/81 H 96 07/22/19 04:00 98.3 F 65 16 146/70 H 95 07/22/19 00:29 93 L Weight Weight 198 lb 3.2 oz I&O: 07/21/19 07/22/19 07/23/19 06:59 06:59 06:59 Intake Total 840 900 Output Total 1680 800 Balance -840 100 Result Diagrams: 07/20/19 06:19 07/22/19 04:14 Hospitalist ROS - Medication Medications: Active Medications Generic Name Dose Route Start Last Admin Trade Name Freq PRN Reason Stop Dose Admin Aspirin 81 mg 07/20/19 09:00 07/22/19 09:21 Ecotrin PO 81 mg DAILY ABRAHAM Administration Carvedilol 3.125 mg 07/19/19 21:00 07/22/19 09:21 Coreg PO 3.125 mg BID ABRAHAM Administration Famotidine 20 mg 07/19/19 09:00 07/22/19 09:21 Pepcid PO 20 mg BID ABRAHAM Administration Furosemide 40 mg 07/22/19 07:30 07/22/19 09:21 Lasix PO 40 mg DAILY-AC ABRAHAM Administration Heparin Sodium (Porcine) 5,000 units 07/19/19 09:00 07/22/19 09:20 Heparin SC 5,000 units BID ABRAHAM Administration Latanoprost 1 drop 07/19/19 21:00 07/21/19 20:04 Xalatan 0.005% Ophth Soln EA EYE 1 drop HS ABRAHAM Administration Lisinopril 5 mg 07/22/19 09:00 07/22/19 09:21 Zestril PO 5 mg DAILY ABRAHAM Administration Potassium Chloride 10 meq 07/20/19 17:00 07/22/19 09:21 Klor-Con 10 PO 10 meq BID-WM ABRAHAM Administration Sodium Chloride 10 ml 07/19/19 09:00 07/22/19 09:22 Flush - Normal Saline IVF 10 ml Q12HR ABRAHAM Administration Sodium Chloride 10 ml 07/19/19 07:24 07/21/19 06:35 Flush - Normal Saline IVF 10 ml PRN PRN Administration Saline Flush - Exam General Appearance: NAD, awake alert Eye: PERRL ENT: normocephalic atraumatic Neck: supple Heart: RRR, normal peripheral pulses Respiratory: CTAB, normal chest expansion Gastrointestinal: soft, normal bowel sounds Neurological: no focal deficits Hosp A/P - Plan Acute hypoxic resp failure Questionable CHF excaerbation--- Acute on chronic systolic CHF exacerbation as started on diuretics and ef showed 50%- -mild depressed sys dysfn... --recent echo EF 50% on --started on diuresis during admission, will monitor for a day, ---> as EF 50%, likely needs PO diuresis -- switched to PO lasix. --h.e. BNP only 126 - - can transition lasix from IV to po Abn troponin- type II -no aggressive intervention --cardiology is following. -- HTN - BP on the low end - reduced coreg dose w.. holds Hypokalemia --being replaced - ck mag level, keep K > 4a nd mag >2 Covid - 19 negative. pending cardiology clearance for dc home.
[2019-07-22 14:22] VITALS: BMI 27.6
--- NOTE | 2019-07-22 15:42 | PRG ---
DATE OF SERVICE: 07/22/2019 SUBJECTIVE: Mr. Laguna is feeling better. He has no complaints. OBJECTIVE: VITAL SIGNS: Blood pressure earlier 174/80, pulse 80. LUNGS: Clear. CARDIAC: Normal S1, normal S2. ABDOMEN: Soft, nontender. ASSESSMENT: Congestive heart failure, systolic and diastolic, mixed, improved. PLAN: 1. Stop verapamil. 2. Increase carvedilol to 6.25 mg tonight and increase to 12.5 mg tomorrow. 3. He should be ready to go home tomorrow. 4. Check another basic metabolic tomorrow. May need to also increase RICHIE inhibitor. I will check again tomorrow morning. Job ID: [id number]
[2019-07-22] MEDS: Latanoprost 0.005% Ophth Soln 2.5 ml Bottle EA EYE SCH (20:12)
[2019-07-22] MEDS ORDERED: Carvedilol 6.25 MG TAB PO SCH (21:00)
[2019-07-23 05:13] LABS: Anion Gap 9 mmol/L (10-20); BUN (Urea Nitrogen) 10 mg/dL (8.4-25.7); Calc. Creatinine Clearance 148 mL/min (70-130); Calcium 7.9 mg/dL (7.8-10.44); Carbon Dioxide 24 mmol/L (23-31); Chloride 108 mmol/L (98-107); Estimated GFR-MDRD Greater than 90; Glucose 86 mg/dL (80-115); Magnesium 2.1 mg/dL (1.6-2.6); Potassium 3.4 mmol/L (3.5-5.1); Sodium 138 mmol/L (136-145)
[2019-07-23] MEDS ORDERED: Lisinopril 5 MG TAB PO SCH ×2 (08:03→09:00)
[2019-07-23] MEDS ORDERED: Potassium Chloride 20 MEQ TAB PO SCH (08:15)
[2019-07-23] MEDS ORDERED: Lisinopril 10 MG TAB PO SCH (09:00)
[2019-07-23] MEDS ORDERED: Carvedilol 6.25 MG TAB PO SCH (09:00)
[2019-07-23] MEDS ORDERED: Potassium Chloride 10 MEQ TAB PO SCH ×2 (09:19→09:45)
[2019-07-23] MEDS: Heparin 5,000 UNITS/ML VIAL SC SCH (09:25)
[2019-07-23] MEDS: Aspirin 81 mg Enteric Coated Tablet PO SCH (09:26)
[2019-07-23] MEDS: Furosemide 40 MG TAB PO SCH (09:26)
[2019-07-23] MEDS: Famotidine 20 MG TAB PO SCH (09:28)
--- NOTE | 2019-07-23 09:46 | PRG ---
DATE OF SERVICE: 07/23/2019 SUBJECTIVE: Mr. Laguna is doing better, feels better today. We stopped the verapamil. OBJECTIVE: VITAL SIGNS: His blood pressure is 154/75, pulse 74 and regular. LUNGS: Clear. CARDIAC: Normal S1. Normal S2. ABDOMEN: Soft and nontender. EXTREMITIES: There is no edema. ASSESSMENT: 1. Congestive heart failure, systolic and diastolic, mixed, improved. 2. Hypertension. 3. Probable underlying coronary artery disease. 4. Right bundle-branch block, on EKG. 5. Moderate mitral regurgitation. PLAN: 1. He is to go home on lisinopril 10 mg once a day. 2. Potassium 10 mEq a day. 3. Furosemide 40 mg a day. 4. Carvedilol 12.5 mg twice a day. 5. Aspirin 81 mg a day. 6. Crestor 10 mg a day. 7. He will need to follow up with his primary care physician and have a basic metabolic panel within 7 to 10 days, but come back and see us as needed. The patient is from [place]. I gave him my card if he wishes to come back at some point we can see him, but medical therapy is the most appropriate therapy in this gentleman. The patient also sees Dr. Daley for metastatic bone cancer. Job ID: [id number] [facility]
[2019-07-23] MEDS: Potassium Chloride 10 MEQ TAB PO SCH (10:07)
[2019-07-23 11:44] VITALS: BP 145/70; TEMP 98.6
--- NOTE | 2019-07-23 13:38 | DIS ---
DATE OF ADMISSION: 07/19/2019 DATE OF DISCHARGE: 07/23/2019 DISCHARGE DIAGNOSES: 1. Congestive heart failure, both systolic and diastolic, mixed kind, improved. 2. Hypertension. 3. Underlying coronary artery disease. 4. Right bundle-branch block on EKG. 5. Moderate mitral regurgitation. 6. Hypokalemia. 7. Abnormal troponin with type 2 metabolic mismatch. 8. COVID ruled out, negative. 9. Acute hypoxic respiratory failure secondary to acute on chronic mixed exacerbation with systolic and diastolic, EF of 50% based on the echo of June 2019. 10. Metastatic bone cancer with unknown primary. DISCHARGE MEDICATIONS: 1. Aspirin 81 mg daily. 2. Coreg 12.5 mg twice a day. 3. Lasix 40 mg daily. 4. Lisinopril 10 mg daily. 5. Potassium chloride 10 mEq daily. 6. Rosuvastatin 10 mg at bedtime. PHYSICAL EXAMINATION: VITAL SIGNS: On the day of discharge, temperature 98.5, pulse 75, blood pressure 154/75, saturating 94% on room air. GENERAL: The patient is alert and oriented x3. He is quite eager to go home. CARDIOVASCULAR: Regular rate and rhythm without murmurs, rubs, or gallops. LUNGS: Clear to auscultation bilaterally without any wheezing, rales, or rhonchi. ABDOMEN: Soft, nontender, nondistended. Good bowel sounds. EXTREMITIES: Without any pitting edema. HOSPITAL COURSE: A 69-year-old male with a history of metastatic cancer, unknown primary with mets to the bone, on chemo, presented at [facility] for shortness of breath with saturations of 80- % with oxygen improved to 94% today. He had a CTA of the chest negative for PE, but showed pleural effusion and vascular congestion suspicious for pneumonia. He is admitted for further workup, he had question of acute hypoxic respiratory failure as well as CHF exacerbation with a mixed kind of systolic and diastolic, his EF is 50%, moderate mitral regurgitation. His home regimen of verapamil discontinued and was started on Coreg as well as potassium supplement as well as Lasix, which was initially diuresed with IV and transitioned to p.o. The patient did very well. Over the course of the time, his home regimen of verapamil discontinued due to his CHF. His Coreg was up titrated to 12.5 twice a day. He will be following with his primary care physician in a week. The patient lives at [place], and if he desired to follow up with Dr. Taylor, the check cashier, he should be able to reach his clinic for an appointment. For the most part, his suspected coronary artery disease as well as CHF can be managed with medical management. He is also planned to see Dr. Daley for metastatic bone cancer. The patient is clinically stable to be discharged to home. DISCHARGE INSTRUCTIONS: 1. Activity: As tolerated. 2. Diet: Healthy heart diet. 3. Followup: Follow up with Dr. Taylor as desired. Follow up with Dr. Toni Mai, primary care physician in 1 week. Follow up with cardiac rehab at [facility]. Follow up with Dr. Doug Desir. Follow up with Dr. Daley. TIME SPENT: Discharge time took over 30 minutes. Job ID: [id number]
[2019-07-23] MEDS ORDERED: Rosuvastatin 10 MG TAB PO SCH (21:00)
--- NOTE | 2019-07-24 04:48 | PQF ---
[employer] Operator Crystal Reports Winform VARSHA Leos SABAAVANI [id number] [facility]-244 [id number] CLINICAL DOCUMENTATION CLARIFICATION FORM: POST DISCHARGE Addendum to original discharge summary date: ____ Late entry note date: __ DATE: 07/24/19 ATTN: Avani Mcmillan Please exercise your independent, professional judgment in responding to the clarification form. Clinical indicators are provided on the bottom of this form for your review Can you please further clarify the diagnosis being treated and evaluated? Please check appropriate box(s): [ ] NSTEMI (NM type II) [ ] Demand ischemia without NM [ ] Abnormal elevation of troponin [ ] Other diagnosis please specify [ ] Unable to determine In addition, please specify: Present on Admission (POA): [ ] Yes [ ] No [ ] Unable to determine CLINICAL INDICATORS - SIGNS / SYMPTOMS / LABS H and P pg.1- Shortness of breath Consult 07/18 Dr. Taylor pg.2- Increased troponin level, likely demand, not a myocardial infarction Hospitalist PN 07/19 pg.3- Abn troponin- type II Laboratory- Troponin 0.041H, 0.038H DS pg.1- Abnormal troponin type 2 metabolic mismatch RISKS: Congestive heart failure, systolic and diastolic, mixed- DS pg.1 Hypertension- DS pg.1 CAD-DS pg.1 Right bundle block- DS pg.1 TREATMENTS: Cardiology Consult Dr. Taylor Aspirin 81mg PO- MAR IV Fluids- MAR Furosemide(Lasix) 40mg PO- MAR (This form is maintained as a part of the permanent medical record) 2014 [employer]. All Rights Reserved [email or web address]
[2019-07-24] MEDS ORDERED: Potassium Chloride 10 MEQ TAB PO SCH (08:00)
== END 2019-07-23 13:00 | disposition home or self-care (01) | DRG 291 ==
LOC: ERS 05:14 → 2SW 05:49
PROVIDERS: ADMIT Internal Medicine; ATTEND Internal Medicine
DX: I11.0 Hypertensive heart disease with heart failure (principal); J96.01 Acute respiratory failure with hypoxia; C79.51 Secondary malignant neoplasm of bone; M19.90 Unspecified osteoarthritis, unspecified site; C80.1 Malignant (primary) neoplasm, unspecified; I50.43 Acute on chronic combined systolic (congestive) and diastolic (congestive) heart failure; I45.10 Unspecified right bundle-branch block; E87.6 Hypokalemia; I25.10 Atherosclerotic heart disease of native coronary artery without angina pectoris; I34.0 Nonrheumatic mitral (valve) insufficiency; Z87.891 Personal history of nicotine dependence; Z79.899 Other long term (current) drug therapy; Z91.040 Latex allergy status
CPT/HCPCS: 36415; 71045; 80048; 80053; 83735; 85025; 96367; 96375; 96413; 99285; J1200; J1642; J1644; J1940; J3489; J3490

== ENCOUNTER 2019-08-08 08:29 | Day surgery (SDC) | payer MEDICARE, OTHER ==
[~2019-08-08 08:29] MED LIST changes: +SODIUM CHLORIDE 0.9% IVPB SCH; +TRASTUZUMAB IVPB SCH; -Zoledronic Acid 4 MG in Sodium Chloride 0.9% 100 ML IVPB SCH
[2019-08-08] MEDS ORDERED: Sodium Chloride 0.9% 20 ML ONE (08:35)
[2019-08-08 08:52] VITALS: BP 160/73; TEMP 98.8
== END 2019-08-08 10:38 | disposition home or self-care (01) ==
LOC: ONC/OP 08:29
PROVIDERS: ATTEND Internal Medicine Hematology & Oncology
DX: Z51.12 Encounter for antineoplastic immunotherapy (principal); C79.51 Secondary malignant neoplasm of bone; C16.8 Malignant neoplasm of overlapping sites of stomach
CPT/HCPCS: 96375; 96413; J1200; J1642

== ENCOUNTER 2019-08-27 10:42 | Day surgery (SDC) | payer MEDICARE, OTHER ==
[2019-08-27] MEDS ORDERED: Sodium Chloride 0.9% 20 ML ONE (11:22)
== END 2019-08-27 12:56 | disposition home or self-care (01) ==
LOC: ONC/OP 10:42
PROVIDERS: ATTEND Internal Medicine Hematology & Oncology
DX: Z51.12 Encounter for antineoplastic immunotherapy (principal); C16.8 Malignant neoplasm of overlapping sites of stomach; C79.51 Secondary malignant neoplasm of bone
CPT/HCPCS: 96375; 96413; J1200; J1642

== ENCOUNTER 2019-10-09 08:29 | Outpatient (CLI) | payer MEDICARE, OTHER ==
--- NOTE | 2019-10-09 10:32 | CT ---
EXAM: CT of the chest with contrast CT of the abdomen and pelvis with contrast HISTORY: Lung cancer with unknown primary COMPARISON: 01/15/2019 TECHNIQUE: 1. Multiple contiguous axial images were obtained in a CT the chest with contrast. Coronal and sagitt al reformats were performed. 2. Multiple contiguous axial images were obtained and a CT of the abdomen and pelvis with contrast. O ral contrast was administered. Coronal and sagittal reformats were performed. FINDINGS: CT CHEST: HEART: Normal in size without focal cardiac abnormality MEDIASTINUM: No hilar or mediastinal lymphadenopathy. There is a Mediport with its tip in the superio r vena cava. LUNGS: A stable 9 mm calcified nodule in the right upper lobe with adjacent smaller calcified nodule. PLEURAL SPACE: Trace bilateral pleural effusions with adjacent atelectasis CHEST WALL SOFT TISSUES: Unremarkable CT ABDOMEN/PELVIS: ABDOMEN: LIVER: There is interval development of mild intrahepatic biliary dilatation. Nonmasslike soft tissue density is seen in the region the beatriz hepatis. New 2.4 cm heterogeneous mass. Other smaller scattered subcentimeter masses are also new. BILE DUCTS: Normal caliber. GALLBLADDER: No calcified gallstones. Normal size and normal caliber wall. The gallbladder is hyperde nse which is nonspecific and could be secondary to sludge from obstruction. PANCREAS: within normal limits. SPLEEN: within normal limits. ADRENALS: Interval development of bilateral adrenal masses measuring up to 2.3 cm in size. KIDNEYS: within normal limits. PELVIS: REPRODUCTIVE ORGANS: No pelvic masses. URETERS: within normal limits. BLADDER: within normal limits. PERITONEUM: No ascites or free air, no fluid collection. BOWEL: Normal caliber. Scattered diverticula in the colon. MESENTERY AND RETROPERITONEUM: No enlarged mesenteric or retroperitoneal lymph nodes. VESSELS: Atherosclerotic calcifications. ABDOMINAL WALL: within normal limits. OSSEOUS STRUCTURES: Diffuse sclerotic lesions in the skeleton are consistent with worsening osseous m etastatic disease. IMPRESSION: 1. Severe worsening of osseous metastatic disease 2. Interval development of hepatic metastatic disease 3. Interval development of intrahepatic biliary dilatation with nonmass-like opacity in the region of the beatriz hepatis. 4. Interval development of bilateral adrenal masses likely represent metastatic lesions. 5. Bilateral pleural effusions with adjacent atelectasis
--- NOTE | 2019-10-09 13:07 | NM ---
WHOLE BODY BONE SCAN: HISTORY: Malignant neoplasm of overlapping sites of stomach RADIOPHARMACEUTICAL: 30 mCi technetium 99m-MDP injected intravenously COMPARISON:01/17/2019 CORRELATION: CT scan of the chest, abdomen and pelvis from today FINDINGS: Diffuse abnormal increase in the tracer uptake is seen throughout the skeleton with interval worsenin g since the last exam. A appearance of SuperScan is noted. There is faint activity in the kidneys. There scattered degenerative activity in the appendicular skeleton. IMPRESSION: Extensive osseous metastatic disease with interval worsening since 01/17/2019
[2019-10-09] MEDS ORDERED: Iopamidol 370 76% 100 ML VIAL ONE (15:46)
== END 2019-10-09 08:30 | disposition home or self-care (01) ==
LOC: CT 08:29
PROVIDERS: ATTEND Internal Medicine Hematology & Oncology
DX: C16.8 Malignant neoplasm of overlapping sites of stomach (principal); C79.51 Secondary malignant neoplasm of bone; C78.7 Secondary malignant neoplasm of liver and intrahepatic bile duct; K83.8 Other specified diseases of biliary tract; E27.8 Other specified disorders of adrenal gland; J90 Pleural effusion, not elsewhere classified; J98.11 Atelectasis
CPT/HCPCS: 71260; 74177; 78306; A9503; Q9967